=== PATIENT | male | born 1945 | race Caucasian/White ===

== ENCOUNTER → 2016-10-14 | Outpatient (CLI) | payer BC ==
[~2016-10-14] MED LIST: ASPEC325 PO; ASPI325T39 PO; AZEL30SP NAE; CYAN100020 PO; FEXO1TAB49 PO; FLNIN NAE; INSDGI SC; INSU100I17 SC; INSU100I2 SC; INSU1INJ23 SC; KETO1AER EXT; KETO2SHA TOP; LIRA18IN SC; LOSA100T65 PO; METF1000 PO; METO1TAB69 PO; METO50TA7 PO; MULT-506 PO; MULTTAB58 PO; NTRGSL/4 UT; PANT40TA PO; SIMV40TA2 PO; ZNTT/150 PO
[2016-10-14 09:40] LABS: BASO % 0.5 %; BASO ABS # 0.03 K/uL (0-0.2); COMPLETE YES; EOS % 7.6 %; HEMATOCRIT 39.8 % (42-52); IG% 0.2 %; LYMPH % 27.7 %; LYMPH ABS # 1.83 K/uL (1.2-3.4); MEAN CELL VOLUME 92.6 fL (80-100); MEAN CORPUSCULAR HEMOGLOBIN 31.9 pg (25-34); MEAN CORPUSCULAR HGB CONC 34.4 g/dl (32-36); MEAN PLATELET VOLUME 11.6 fL (7.4-10.4); MONO % 15.8 %; NEUT % 48.2 %; PLATELET COUNT 199 K/uL (130-400)
[2016-10-14 10:01] LABS: AST/SGOT 26 U/L (15-37); BLOOD UREA NITROGEN 16 mg/dl (7-18); BUN/CREATININE RATIO 12.5 (10-20); CALCIUM 9.2 mg/dl (8.5-10.1); CARBON DIOXIDE 24 mmol/L (21-32); CHLORIDE 108 mmol/L (98-107); GLUCOSE 97 mg/dl (70-99); POTASSIUM 4.1 mmol/L (3.5-5.1); SODIUM 142 mmol/L (136-145)
[2016-10-14 10:05] LABS: ALT/SGPT 37 U/L (12-78); CHOLESTEROL 99 mg/dl (0-200); CHOLESTEROL/HDL RATIO 2.7; HDL CHOLESTEROL 37 mg/dl; LDL CHOLESTEROL CALCULATED 46 mg/dl; TRIGLYCERIDES 78 mg/dl (0-150); VERY LOW DENSITY LIPOPROT CALC 16 mg/dl
[2016-10-14 10:16] LABS: ESTIMATED AVERAGE GLUCOSE 128 mg/dl; HA1C FLAG Normal (Normal)
[2016-10-14 10:22] LABS: RATIO 6.2 mcg/mg (0-30.0)
== END | disposition home or self-care (01) ==
LOC: C.LAB1850 07:41
PROVIDERS: ATTEND Physician Assistant
DX: Z11.59 Encounter for screening for other viral diseases (principal); E11.9 Type 2 diabetes mellitus without complications; I10 Essential (primary) hypertension; E78.00 Pure hypercholesterolemia, unspecified; I25.10 Atherosclerotic heart disease of native coronary artery without angina pectoris

== ENCOUNTER → 2016-10-20 | Day surgery (SDC) | payer BC ==
[2016-10-07 08:39] VITALS: Ht 182.9 cm; Wt 131.8 kg
[~2016-10-20] VITALS: Ht 182.9 cm; Wt 131.8 kg
[~2016-10-20] MED LIST changes: +BACL10TA PO; +HYDR-4079 PO; +KETO10TA PO; +LIDOCAINE HCL 2% 2 ML VIAL (20MG/ML) ONE; +METO100T44 PO; -METO1TAB69 PO; +MIDAZOLAM HCL 1 MG/ML 2ML VIAL ONE; +PROPOFOL IV EMULSION 10 MG/ML 20 ML VIAL IV ONE; +SODIUM CHLORIDE 0.9% 500ML 500 ML IV ONE
--- NOTE | 2016-10-20 13:00 | Endo History and Physical ---
History & Physical Date of Service: Oct 20, 2016. Chief Complaint: Screening Referring Physician: Dr. Victor History of Present Illness 71 yo CM who presents for screening colonoscopy. Past Medical History Diabetes, Reflux, High Cholesterol, Heart Disease, Hypertension Past Surgical History Hx Cardiac Surgery: Yes (CABG-4 VESSELS) Hx Internal Defibrillator: No Hx Abdominal Surgery: No Hx Post-Op Nausea and Vomiting: No Hx Cancer Surgery: No Hx Thoracic Surgery: No Hx Orthopedic: Yes (LEFT KNEE ARTHROSCOPY) Hx Urinary Tract Surgery: No Family History None Social History Smoking Status: Never Smoker Hx Substance Use: No Hx Alcohol Use: No Allergies Coded Allergies: Latex (Verified Allergy, Unknown, RASH, 10/20/16) Sulfa Drugs (Verified Allergy, Unknown, SEVERE ALLERGY "COULD ", ) Amoxicillin (Verified Adverse Reaction, Mild, VOMITING, 10/20/16) Clarithromycin (Verified Adverse Reaction, Mild, GI UPSET, 10/20/16) Clavulanic Acid (Verified Adverse Reaction, Mild, VOMITING, 10/20/16) Current Medications Reported Home Medications Medications Dose Route/Sig Max Daily Dose Days Date Category Dose Instructions Vitamin B12 (Cyanocobalamin) 1,000 Mcg Tab 1 Tab PO QAM 10/07/16 Reported Victoza (Liraglutide) 18 Mg/3 Ml Inj 1.8 Mg SC QAM 10/07/16 Reported Zocor (Simvastatin) 40 Mg Tab 40 Mg PO QPM 10/07/16 Reported Protonix (Pantoprazole Sodium) 40 Mg Tab 40 Mg PO QAM 10/07/16 Reported Nitrostat (Nitroglycerin) 0.4 Mg Tab 0.4 Mg UT PRN PRN 10/07/16 Reported Multivitamin (Multivitamins) Tab 1 Tab PO QPM 10/07/16 Reported Toprol-Xl (Metoprolol Succinate) 50 Mg Tabcr 50 Mg PO QAM 10/07/16 Reported Cozaar (Losartan Potassium) 100 Mg Tab 100 Mg PO QAM 10/07/16 Reported Glucophage (Metformin Hcl) 1,000 Mg Tab 1,000 Mg PO BID 10/07/16 Reported Lantus (Insulin Glargine) 100 Unit/Ml Inj 30 Units SC QPM 10/07/16 Reported Ketodan (Ketoconazole (Topical)) 2 % Aer 1 Appln EXT BID PRN 10/07/16 Reported Ketoconazole (Ketoconazole (Topical)) 2 % Sha 1 Appln TOP 2XWK 30 10/07/16 Reported Humulin N Kwikpen (Insulin Isophane (Human)) 100 Unit/Ml Inj 22 Units SC HS 10/07/16 Reported Multivitamin (Multiple Vitamin) 1 Tab Tab 1 Tab PO QAM 08/21/14 Reported Humalog Pen (Insulin Lispro (Human)) 100 Unit/ Inj 0 SC UD 12/22/11 Reported per sliding scale Aspirin * (Aspirin) 325 Mg Tab 325 Mg PO QAM 04/19/10 Reported Vital Signs Weight (Kilograms): 131.82 Height (Feet): 6 Height (Inches): 0 Physical Exam General Appearance: WD/WN, no apparent distress Respiratory/Chest: Auscultation: breath sounds normal Cardiovascular: Heart Auscultation: RRR Abdomen: Bowel Sounds: normal Inspection & Palpation: soft, non-distended, no tenderness, guarding & rebound Assessment and Plan Assessment: 71 yo CM who presents for screening colonoscopy. Plan: Proceed with colonoscopy.
--- NOTE | 2016-10-20 14:25 | GI REPORT ---
Procedure Date: 10/20/2016 2:04 PM Procedure: Colonoscopy Indications: Screening for colorectal malignant neoplasm Medicines: Monitored Anesthesia Care Complications: No immediate complications. Estimated Blood Loss: Estimated blood loss: none. Procedure: Pre-Anesthesia Assessment: - Prior to the procedure, a History and Physical was performed, and patient medications and allergies were reviewed. The patient's tolerance of previous anesthesia was also reviewed. The risks and benefits of the procedure and the sedation options and risks were discussed with the patient. All questions were answered, and informed consent was obtained. Prior Anticoagulants: The patient has taken aspirin, last dose was day of procedure. ASA Grade Assessment: III - A patient with severe systemic disease. After reviewing the risks and benefits, the patient was deemed in satisfactory condition to undergo the procedure. After I obtained informed consent, the scope was passed under direct vision. Throughout the procedure, the patient's blood pressure, pulse, and oxygen saturations were monitored continuously. The Scope was introduced through the anus and advanced to the terminal ileum. The colonoscopy was performed without difficulty. The patient tolerated the procedure well. The quality of the bowel preparation was good. The terminal ileum, ileocecal valve, appendiceal orifice, and rectum were photographed. Findings: Multiple small-mouthed diverticula were found in the sigmoid colon. Non-bleeding internal hemorrhoids were found during retroflexion. The hemorrhoids were small. Impression: - Diverticulosis in the sigmoid colon. - Non-bleeding internal hemorrhoids. - No specimens collected. Recommendation: - Resume previous diet. - Continue present medications. - Repeat colonoscopy in 10 years for surveillance. - Return to primary care physician as previously scheduled. Gilmar Umaña, DO 10/20/2016 2:25:01 PM This report has been signed electronically. Note Initiated On: 10/20/2016 2:04 PM I attest to the content of the Intraoperative Record and orders documented therein, exceptions below
--- NOTE | 2016-10-20 14:31 | Discharge Instructions ---
Endoscopy Patient Instructions Date / Procedure(s) Performed Oct 20, 2016. Colonoscopy Allergy Information Coded Allergies: Latex (Verified Allergy, Unknown, RASH, 10/20/16) Sulfa Drugs (Verified Allergy, Unknown, SEVERE ALLERGY "COULD ", ) Amoxicillin (Verified Adverse Reaction, Mild, VOMITING, 10/20/16) Clarithromycin (Verified Adverse Reaction, Mild, GI UPSET, 10/20/16) Clavulanic Acid (Verified Adverse Reaction, Mild, VOMITING, 10/20/16) Discharge Date / Findings Oct 20, 2016. Diverticulosis Internal hemorrhoids Medication Instructions Stopped Medication(s): metformin stopped 10/18/16 OK to resume all medications today as prescribed. Reported Home Medications Medications Dose Route/Sig Max Daily Dose Days Date Category Dose Instructions Vitamin B12 (Cyanocobalamin) 1,000 Mcg Tab 1 Tab PO QAM 10/07/16 Reported Victoza (Liraglutide) 18 Mg/3 Ml Inj 1.8 Mg SC QAM 10/07/16 Reported Zocor (Simvastatin) 40 Mg Tab 40 Mg PO QPM 10/07/16 Reported Protonix (Pantoprazole Sodium) 40 Mg Tab 40 Mg PO QAM 10/07/16 Reported Nitrostat (Nitroglycerin) 0.4 Mg Tab 0.4 Mg UT PRN PRN 10/07/16 Reported Multivitamin (Multivitamins) Tab 1 Tab PO QPM 10/07/16 Reported Toprol-Xl (Metoprolol Succinate) 50 Mg Tabcr 50 Mg PO QAM 10/07/16 Reported Cozaar (Losartan Potassium) 100 Mg Tab 100 Mg PO QAM 10/07/16 Reported Glucophage (Metformin Hcl) 1,000 Mg Tab 1,000 Mg PO BID 10/07/16 Reported Lantus (Insulin Glargine) 100 Unit/Ml Inj 30 Units SC QPM 10/07/16 Reported Ketodan (Ketoconazole (Topical)) 2 % Aer 1 Appln EXT BID PRN 10/07/16 Reported Ketoconazole (Ketoconazole (Topical)) 2 % Sha 1 Appln TOP 2XWK 30 10/07/16 Reported Humulin N Kwikpen (Insulin Isophane (Human)) 100 Unit/Ml Inj 22 Units SC HS 10/07/16 Reported Humalog Pen (Insulin Lispro (Human)) 100 Unit/ Inj 0 SC UD 12/22/11 Reported per sliding scale Aspirin * (Aspirin) 325 Mg Tab 325 Mg PO QAM 04/19/10 Reported Provider Instructions Activity Restrictions - No exercising or heavy lifting for 24 hours. - Do not drink alcohol the day of the procedure. - Do not drive a car or operate machinery until the day after the procedure. - Do not make any important decisions or sign important papers in 24 hours after the procedure. Following Day: - Return to full activity which may include returning to work/school. Diet Start your diet with liquids and light foods (jello, soup, juice, toast). Then eat your usual diet if not nauseated. Treatment For Common After Affects For mild abdominal pain, bloating, or excessive gas: - Rest - Eat lightly - Lie on right side Follow-Up Information Follow-up with Kayleigh as scheduled Anesthesia Information What You Should Know You have had a procedure that required some medicine to reduce anxiety and discomfort. This treatment is called moderate sedation. After receiving the treatment, you may be sleepy, but you will be able to breathe on your own. The effects of the treatment may last for several hours. Follow these instructions along with Activity/Diet recommendations noted above: * Do NOT do anything where dizziness or clumsiness would be dangerous. * Rest quietly at home today, then you can be up and about tomorrow. * Have a responsible person stay with you the rest of today. * You may have had an I.V. today. If so, you may take the dressing off later today. Recommendations Call your doctor if: * Trouble breathing * Continuous vomiting for more than 24 hours * Temperature above 101 degrees * Severe abdominal pain or bloating * Pain not relieved by pain medicine ordered * There is increased drainage or redness from any incision * A large amount of rectal bleeding greater than 2-3 tablespoons. (If you had a polyp/s removed or have hemorrhoids, a small amount of blood - from the rectum is to be expected.) * You have any unanswered questions or concerns. IN THE EVENT OF A SERIOUS EMERGENCY, GO TO THE NEAREST EMERGENCY ROOM Your discharge instructions were prepared by provider Gilmar Umaña. Patient Instructions Signature Page Shreyas James Patient (or Guardian) Signature/Date: I have read and understand the instructions given to me by my caregivers. Caregiver/RN/Doctor Signature/Date: The above-named patient and/or guardian has received patient instructions on this date. + Original Patient Signature Page (only) stays with chart. Please make copy for patient.
[2016-10-20 14:48] VITALS: BP 159/77; PULSE 73; O2SAT 96
--- NOTE | 2016-10-20 15:36 | Anesthesiology Progress Note ---
Anesthesia Post Op Note Date & Time Oct 20, 2016 at 15:36 Vital Signs Pain Intensity: 0 Vital Signs Past 12 Hours Date Time Temp Pulse Resp B/P Pulse Ox O2 Delivery O2 Flow Rate FiO2 10/20/16 14:48 73 16 159/77 96 Room Air 10/20/16 14:33 72 16 159/67 94 Room Air 10/20/16 14:18 69 12 152/81 95 Room Air 10/20/16 13:12 36.8 74 16 145/71 95 Room Air Notes Mental Status: alert / awake / arousable, participated in evaluation Pt Amnestic to Procedure: Yes Nausea / Vomiting: adequately controlled Pain: adequately controlled Airway Patency, RR, SpO2: stable & adequate BP & HR: stable & adequate Hydration State: stable & adequate Anesthetic Complications: no major complications apparent
== END | disposition home or self-care (01) ==
LOC: C.GI 12:29
PROVIDERS: ATTEND Internal Medicine
DX: Z12.11 Encounter for screening for malignant neoplasm of colon (principal); K57.30 Diverticulosis of large intestine without perforation or abscess without bleeding; K64.8 Other hemorrhoids; K21.9 Gastro-esophageal reflux disease without esophagitis; E11.9 Type 2 diabetes mellitus without complications; E78.5 Hyperlipidemia, unspecified; I10 Essential (primary) hypertension; Z95.1 Presence of aortocoronary bypass graft; Z88.1 Allergy status to other antibiotic agents; Z88.2 Allergy status to sulfonamides; Z88.8 Allergy status to other drugs, medicaments and biological substances; Z79.4 Long term (current) use of insulin; Z79.82 Long term (current) use of aspirin; Z91.040 Latex allergy status

== ENCOUNTER → 2017-03-06 | Outpatient (CLI) | payer BC ==
[~2017-03-06] MED LIST changes: -BACL10TA PO; -HYDR-4079 PO; -KETO10TA PO; -LIDOCAINE HCL 2% 2 ML VIAL (20MG/ML) ONE; -METO100T44 PO; +METO1TAB69 PO; -MIDAZOLAM HCL 1 MG/ML 2ML VIAL ONE; -MULTTAB58 PO; -PROPOFOL IV EMULSION 10 MG/ML 20 ML VIAL IV ONE; -SODIUM CHLORIDE 0.9% 500ML 500 ML IV ONE
[2017-03-06 09:55] LABS: ESTIMATED AVERAGE GLUCOSE 123 mg/dl; HA1C FLAG Normal (Normal)
== END | disposition home or self-care (01) ==
LOC: C.LAB1850 08:55
PROVIDERS: ATTEND Physician Assistant
DX: E11.9 Type 2 diabetes mellitus without complications (principal)

== ENCOUNTER 2017-03-22 13:24 | Emergency (ER) | payer BC ==
[~2017-03-22] VITALS: Ht 180.3 cm; Wt 134.4 kg
[~2017-03-22 13:24] MED LIST changes: -ASPI325T39 PO; -AZEL30SP NAE; -FEXO1TAB49 PO; -FLNIN NAE; -INSU100I2 SC; -METO1TAB69 PO; -ZNTT/150 PO
[2017-03-22 13:30] VITALS: TEMP 36.7; Ht 180.3 cm; Wt 134.4 kg
[2017-03-22] MEDS ORDERED: NITROGLYCERIN OINT 2% 1GM PACKET EXT ONE (13:45)
[2017-03-22 13:57] LABS: HEMATOCRIT 39.3 % (42-52); MEAN CELL VOLUME 95.9 fL (80-100); MEAN CORPUSCULAR HEMOGLOBIN 31.2 pg (25-34); MEAN CORPUSCULAR HGB CONC 32.6 g/dl (32-36); MEAN PLATELET VOLUME 11.4 fL (7.4-10.4); PLATELET COUNT 181 K/uL (130-400); WHITE BLOOD COUNT 6.39 K/uL (4.8-10.8)
--- NOTE | 2017-03-22 14:00 | DIAGNOSTIC IMAGING REPORT ---
CHEST ONE VIEW PORTABLE HISTORY: 71 years-old Male acute chest pain. COMPARISON: Chest radiographs 12/22/2011 TECHNIQUE: Portable upright AP view of the chest FINDINGS: Cardiac silhouette is upper limits of normal. Prior median sternotomy. There is no pneumothorax, pleural effusion, focal airspace consolidation or overt pulmonary edema. The bones are grossly intact. IMPRESSION: No acute cardiopulmonary process. The above report was generated using voice recognition software. It may contain grammatical, syntax or spelling errors. Electronically signed by: Jesu Kramer M.D. 03/22/2017 1:59 PM Dictated Date/Time: 03/22/2017 1:58 PM
[2017-03-22] MEDS ORDERED: ASPI325T39 PO (14:07)
[2017-03-22 14:09] LABS: POTASSIUM 4.2 mmol/L (3.5-5.1)
[2017-03-22 14:12] LABS: PROTHROMBIN TIME (PATIENT) 10.8 SECONDS (9.0-12.0)
[2017-03-22] MEDS ORDERED: INSU100I2 SC (14:12)
[2017-03-22 14:14] LABS: BUN/CREATININE RATIO 11.9 (10-20); CALCIUM 9.2 mg/dl (8.5-10.1); CREATININE 1.4 mg/dl (0.60-1.40)
[2017-03-22 14:18] LABS: ALB/GLOB RATIO 0.9 (0.9-2); CKMB/CK RATIO 2.2 (0-3.0)
--- NOTE | 2017-03-22 14:24 | EMERGENCY ROOM VISIT NOTE ---
History First contact with patient: 13:34 Chief Complaint: CHEST PAIN Stated Complaint: V, CHEST PAINS Nursing Triage Summary: pt reports started with cp this AM and took nitro X1 it made my tongue burn and now I just feel crappy , pt currently denies cp pt reports had same type of sx 3 years ago and was dx with indigestion. states today took alkaseltzer with relief History of Present Illness The patient is a 71 year old male with history of CABG and GERD who presents to the Emergency Room with complaints of chest/epigastric pain and nausea. His symptoms started with left sided chest pain that started this morning around 7am , lasted for a few minutes, severity 5/10, radiation to his left arm, non positional, occurred at rest while sitting on the edge of his bed. After this it turned it became epigastric pain and he felt nauseous. He went to the bathroom and dry heaved for several minutes. After which he went back to have a nap. Around 10:30am he woke up again and just didn't feel like his normal self, possibly a little nauseous. He took a nitroglycerin and it made him feel worse with tightening feeling of his chest and arm for a few seconds. He then took some vandana seltzer and this helped calm his pain down. He has been asymptomatic since then and no chest pain or shortness of breath in the ER. His brought him in after convincing him he should get checked out. He notes occasionally he does get intermittent chest pains which feel like muscle spasms, non exertional, occur usually at rest, rubbing his intercostal muscles helps. Review of Systems Constitutional: No fever, No chills Eyes: No worsening of vision ENT: No hearing loss Respiratory: + problem reported (night time snoring and excessive daytime sleepiness), No cough, No sputum, No wheezing, No shortness of breath Cardiovascular: + chest pain, No orthopnea, No PND, No edema, No claudication, No palpitations Abdomen: No nausea, No vomiting, No diarrhea, No constipation, No GI bleeding Musculoskeletal: No joint pain, No muscle pain Genitourinary - Male: No hematuria, No dysuria, No urinary frequency, No urinary urgency Neurologic: No paralysis, No weakness, No numbness/tingling, No vertigo, No balance problems Endocrine: No fatigue, No excessive thirst, No excessive urination Hematologic / Lymphatic: No abnormal bleeding/bruising Integumentary: No rash, No itch Past Medical/Surgical History Medical Problems: (1) Benign essential hypertension (2) CABG (3) Coronary artery disease (4) Diabetes mellitus type 2 (5) Gastroesophageal reflux disease (6) Hyperlipidemia Social History Smoking Status: Never Smoker Alcohol Use: none Marital Status: Current/Historical Medications Scheduled Aspirin (Aspirin Ec), 325 MG PO DAILY Azelastine Hcl-Fluticasone Pro (Dymista), 2 SPRY MARY BID Cyanocobalamin (Vitamin B12), 1 TAB PO QAM Fexofenadine Hcl (Jen Allergy), 180 MG PO DAILY Fluticasone Propionate (Fluticasone Propionate), 2 SPRAYS MARY DAILY Insulin Glargine (Lantus), 30 UNITS SC QPM Insulin Isophane (Human) (Humulin N Kwikpen), 22 UNITS SC HS Insulin Lispro (Human) (Humalog Kwikpen), 1 DOSE SC UD Ketoconazole (Topical) (Ketoconazole), 1 APPLN TOP 2XWK Liraglutide (Victoza), 1.8 MG SC QAM Losartan Potassium (Cozaar), 100 MG PO QAM Metformin Hcl (Glucophage), 1,000 MG PO BID Metoprolol Succ (Toprol Xl) (Toprol-Xl ), 100 MG PO DAILY Multivitamin (Multivitamin), 1 TAB PO QPM Pantoprazole (Protonix), 40 MG PO QAM Ranitidine (Zantac), 1 TAB PO BID Simvastatin (Zocor), 40 MG PO QPM Scheduled PRN Ketoconazole (Topical) (Ketodan), 1 APPLN EXT BID PRN for PRN Nitroglycerin (Nitrostat), 0.4 MG UT PRN PRN for Chest Pain Physical Exam Vital Signs Date Time Temp Pulse Resp B/P (MAP) Pulse Ox O2 Delivery O2 Flow Rate FiO2 03/22/17 17:00 89 18 148/82 95 03/22/17 16:00 70 18 141/80 94 Room Air 03/22/17 15:03 73 20 169/83 98 Room Air 03/22/17 14:21 77 18 171/86 96 Room Air 03/22/17 13:41 82 03/22/17 13:30 36.7 82 18 189/110 94 Room Air Pain Rating (0-10): 0 Physical Exam General Appearance: no apparent distress, + obese Eyes: normal inspection, PERRL, EOMI Neck: supple, no JVD (difficult to assess due to patient's weight), trachea midline Respiratory/Chest: chest non-tender, lungs clear, normal breath sounds, no respiratory distress, no accessory muscle use Cardiovascular: regular rate, rhythm, no murmur, normal peripheral pulses Abdomen / GI: normal bowel sounds, non tender, soft Back: no CVA tenderness Extremities: no calf tenderness, normal capillary refill, + pedal edema ( bilateral right 2+ to knees, left 1+, right calf circumference > 2cm then his left.) 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 COMPARISON: Chest radiographs 12/22/2011 TECHNIQUE: Portable upright AP view of the chest FINDINGS: Cardiac silhouette is upper limits of normal. Prior median sternotomy. There is no pneumothorax, pleural effusion, focal airspace consolidation or overt pulmonary edema. The bones are grossly intact. IMPRESSION: No acute cardiopulmonary process. The above report was generated using voice recognition software. It may contain grammatical, syntax or spelling errors. Electronically signed by: Jesu Kramer M.D. 03/22/2017 1:59 PM Laboratory Results 03/22/17 13:41 03/22/17 13:41 Test 03/22/17 13:41 03/22/17 15:14 Red Blood Count 4.10 M/uL (4.7-6.1) Mean Corpuscular Volume 95.9 fL (80-100) Mean Corpuscular Hemoglobin 31.2 pg (25-34) Mean Corpuscular Hemoglobin Concent 32.6 g/dl (32-36) RDW Standard Deviation 49.4 fL (36.4-46.3) RDW Coefficient of Variation 14.1 % (11.5-14.5) Mean Platelet Volume 11.4 fL (7.4-10.4) Prothrombin Time 10.8 SECONDS (9.0-12.0) Prothromb Time International Ratio 1.0 (0.9-1.1) Activated Partial Thromboplast Time 27.1 SECONDS (21.0-31.0) Partial Thromboplastin Ratio 1.0 Anion Gap 6.0 mmol/L (3-11) Est Creatinine Clear Calc Drug Dose 69.7 ml/min Estimated GFR () 59.0 Estimated GFR (Non- 50.9 BUN/Creatinine Ratio 11.9 (10-20) Calcium Level 9.2 mg/dl (8.5-10.1) Total Bilirubin 0.8 mg/dl (0.2-1) Direct Bilirubin 0.2 mg/dl (0-0.2) Aspartate Amino Transf (AST/SGOT) 31 U/L (15-37) Alanine Aminotransferase (ALT/SGPT) 39 U/L (12-78) Alkaline Phosphatase 56 U/L (45-117) Total Creatine Kinase 203 U/L (39-308) Creatine Kinase MB 4.4 ng/ml (0.5-3.6) Creatine Kinase MB Ratio 2.2 (0-3.0) Total Protein 7.4 gm/dl (6.4-8.2) Albumin 3.5 gm/dl (3.4-5.0) Globulin 3.9 gm/dl (2.5-4.0) Albumin/Globulin Ratio 0.9 (0.9-2) Lipase 177 U/L (73-393) Bedside Troponin I < 0.030 ng/ml (0-0.045) Medications Administered Medications (Trade) Dose Ordered Sig/Abdiel Route Start Time Stop Time Status Last Admin Dose Admin Lidocaine HCl (Viscous Lidocaine 2% Soln) 20 ml STK-MED ONCE .ROUTE 03/22/17 15:55 03/22/17 15:56 DC 03/22/17 15:59 10 ML Al Hydroxide/Mg Hydroxide (Maalox Susp) 30 ml STK-MED ONCE .ROUTE 03/22/17 15:55 03/22/17 15:56 DC 03/22/17 15:59 30 ML ECG Indication: chest pain Rate (beats per minute): 81 Rhythm: normal sinus Findings: no acute ischemic change Change: no significant change (22 December 2016) ED Course 13:35 History and physical performed by myself 14:[address] Sesay who separately performed history and examination. Advised to change US doppler right leg to bilateral. 15:40 Patient was re-evaluated and denies any ongoing pain. Offered GI cocktail which he accepted as it had worked well previously. Medical Decision Prior records/ancillary studies reviewed. Triage Nursing notes reviewed. Additional history obtained from patient and his . The patient's history was concerning for chest pain wit history of CABG. Differential diagnosis: Etiologies such as cardiac ischemia, aortic dissection, pulmonary embolism, pneumonia, pneumothorax, musculoskeletal, infections, pericarditis, myocarditis , esophageal rupture, gastrointestinal, as well as others were entertained. Physical examination: As above. ER treatment provided: GI cocktail (lidocaine and maalox) On reassessment the patient felt better. Diagnostic interpretation by me: The electrocardiogram was negative for pathologic change. The labs revealed mild anaemia Hgb 12.8 and normal troponin x2. Imaging studies: Chest x-ray as above By the evaluation outlined above emergent etiologies such as aortic dissection, pulmonary embolism, pneumonia, pneumothorax, infections, pericarditis, myocarditis, gastrointestinal, as well as others were deemed relatively unlikely. The patient informed about the findings as listed above. All questions were answered and he was pleased with the treatment. Return instructions were outlined and the patient was discharged in stable condition. He was advised to stay overnight to be evaluated by the hospitalist group for repeat troponin in the morning to rule out cardiac ischemia however he declined and wished to be discharged home. He will be discharged home on ranitidine in combination with his pantoprazole for possible gastritis. He was advised to follow up with his primary care provider regarding possible further testing for h. pylori or EGD. Incidentally he also notes excessive daytime sleepiness and night time snoring. He was advised to discuss with his PCP regarding possible testing for obstructive sleep apnea for this. He was also advised to follow up with his PCP for his elevated blood pressure while in the ER. Outpatient prescription management: Ranitidine 150 mg PO BID Referral: The patient was referred back to his primary care physician for follow-up in 1 to 2 days for a recheck of the current condition. Medication Reconcilliation Current Medication List: was personally reviewed by me Blood Pressure Screening Patient's blood pressure: Elevated blood pressure Blood pressure disposition: Referred to PCP Impression Primary Impression: Atypical chest pain Departure Information Dispostion Home / Self-Care Condition GOOD Prescriptions Ranitidine (Zantac) 150 Mg Tab 1 TAB PO BID for 14 Days, #28 TAB 3 Refills Prov: Александр Ng MD 03/22/17 Referrals Александр Victor M.D. (PCP) Patient Instructions My [facility] Additional Instructions You were evaluated in the ER for atypical chest pain, epigastric pain and nausea. EKG showed no ischemic changes, POC troponin 8 hours after the onset of your pain was negative. Recommendation was to stay in overnight for repeat troponin however you wished to be discharged. Recommend taking ranitidine for possible gastritis for the next 2 weeks. If pain returns while taking ranitidine please return to the ER immediately. Your excessive daytime sleepiness and night time snoring is concerning for obstructive sleep apnea and we recommend talking to your primary care physician about possibly having a sleep study. You should also follow up with your PCP for elevated blood pressure while in the ER. Read all the package inserts or medication information paperwork provided. If you have any questions or concerns call your primary provider, pharmacist or the ER for assistance. Rest and drink plenty of fluids as tolerated. Continue current medications. Avoid strenuous activities and anything that worsens your pain. Resume normal activities. Return to the ER immediately for worsening or persistent chest pain, abdominal pain, vomiting, fevers, chest pains, difficulty breathing, worsening of your condition, or as needed. Follow up with your primary physician in 1-2 days for a recheck of your current condition. Resident Tracking Resident Involvement: Resident Care Provided Care Provided: Adult ED
[2017-03-22] MEDS ORDERED: METO1TAB69 PO (14:25)
[2017-03-22] MEDS ORDERED: FEXO1TAB49 PO (14:30)
[2017-03-22] MEDS ORDERED: AZEL30SP NAE (14:30)
[2017-03-22] MEDS ORDERED: FLNIN NAE (14:30)
--- NOTE | 2017-03-22 14:58 | DIAGNOSTIC IMAGING REPORT ---
ULTRASOUND VENOUS DOPPLER LWR EXT BILA CLINICAL HISTORY: Bilateral leg swelling COMPARISON STUDY: No previous studies for comparison. FINDINGS: Real-time and color flow Doppler imaging were performed. Flow was seen within the femoral, popliteal and calf veins with no intraluminal thrombus demonstrated. The saphenous vein is patent. IMPRESSION: No evidence of lower extremity DVT. Electronically signed by: Perry Durán M.D. 03/22/2017 2:57 PM Dictated Date/Time: 03/22/2017 2:56 PM
[2017-03-22] MEDS ORDERED: GI COCKTAIL PO STA (15:50)
[2017-03-22] MEDS ORDERED: LIDOCAINE HCL 2% VISC SOLN 20 ML UDC ONE (15:55)
[2017-03-22] MEDS ORDERED: ALUMINUM/MAGNESIUM SUSP 30 ML UDC ONE (15:55)
[2017-03-22] MEDS ORDERED: ZNTT/150 PO (16:36)
[2017-03-22 17:00] VITALS: BP 148/82; PULSE 89; O2SAT 95
--- NOTE | 2017-03-22 17:54 | EMERGENCY ROOM VISIT NOTE ---
History Report prepared by Jacoby: Angelique Paige Under the Supervision of: Dr. Jared Sesay M.D. First contact with patient: 13:34 Chief Complaint: CHEST PAIN Stated Complaint: V, CHEST PAINS Nursing Triage Summary: pt reports started with cp this AM and took nitro X1 it made my tongue burn and now I just feel crappy , pt currently denies cp pt reports had same type of sx 3 years ago and was dx with indigestion. states today took alkaseltzer with relief History of Present Illness The patient is a 71 year old male who presents to the Emergency Room with complaints of an episode of chest pain occurring at 7am this morning that has completely resolved at this time. The patient states that he developed chest pain this morning while at rest. It lasted for a couple of minutes and then resolved on its own. He did not experience any diaphoresis or dizziness. He did not have any appetite and states that he felt nauseated throughout the entire day. This worsened this afternoon and he developed epigastric abdominal pain. He denies any vomiting but states that he was dry-heaving. He took a nap and when he woke up he was not feeling well. He did not have any pain but he took a nitro and that made him feel worse. It made him woozy and gave him a headache. He then took some vandana seltzer and that made him feel better. He is no longer experiencing any symptoms at this time. The patient notes that he has had some left shoulder pain for a few days that felt musculoskeletal and he states that is similar to how his chest pain felt today. The patient denies any current abdominal pain or chest pain. He denies shortness of breath. He has a history of a CABG. Source of History: patient Onset: this morning Position: chest Timing: resolved Modifying Factors (Worsening): other (nitro) Modifying Factors (Relieving): other (vandana seltzer) Associated Symptoms: + nausea, + abdominal pain, No diaphoresis, No SOB, No vomiting Review of Systems See HPI for pertinent positives & negatives. A total of 10 systems reviewed and were otherwise negative. Past Medical & Surgical Medical Problems: (1) Benign essential hypertension (2) CABG (3) Coronary artery disease (4) Diabetes mellitus type 2 (5) Gastroesophageal reflux disease (6) Hyperlipidemia Family History Heart disease Hypertension Social History Smoking Status: Never Smoker Smokeless Tobacco Use: No Alcohol Use: none Drug Use: none Marital Status: Housing Status: lives with significant other Occupation Status: employed Current/Historical Medications Scheduled Aspirin (Aspirin Ec), 325 MG PO DAILY Azelastine Hcl-Fluticasone Pro (Dymista), 2 SPRY MARY BID Cyanocobalamin (Vitamin B12), 1 TAB PO QAM Fexofenadine Hcl (Jen Allergy), 180 MG PO DAILY Fluticasone Propionate (Fluticasone Propionate), 2 SPRAYS MARY DAILY Insulin Glargine (Lantus), 30 UNITS SC QPM Insulin Isophane (Human) (Humulin N Kwikpen), 22 UNITS SC HS Insulin Lispro (Human) (Humalog Kwikpen), 1 DOSE SC UD Ketoconazole (Topical) (Ketoconazole), 1 APPLN TOP 2XWK Liraglutide (Victoza), 1.8 MG SC QAM Losartan Potassium (Cozaar), 100 MG PO QAM Metformin Hcl (Glucophage), 1,000 MG PO BID Metoprolol Succ (Toprol Xl) (Toprol-Xl ), 100 MG PO DAILY Multivitamin (Multivitamin), 1 TAB PO QPM Pantoprazole (Protonix), 40 MG PO QAM Ranitidine (Zantac), 1 TAB PO BID Simvastatin (Zocor), 40 MG PO QPM Scheduled PRN Ketoconazole (Topical) (Ketodan), 1 APPLN EXT BID PRN for PRN Nitroglycerin (Nitrostat), 0.4 MG UT PRN PRN for Chest Pain Allergies Coded Allergies: Latex (Verified Allergy, Unknown, RASH, 03/22/17) Sulfa Drugs (Verified Allergy, Unknown, SEVERE ALLERGY "COULD ", ) Amoxicillin (Verified Adverse Reaction, Mild, VOMITING, 03/22/17) Clarithromycin (Verified Adverse Reaction, Mild, GI UPSET, 03/22/17) Clavulanic Acid (Verified Adverse Reaction, Mild, VOMITING, 03/22/17) Physical Exam Vital Signs Date Time Temp Pulse Resp B/P (MAP) Pulse Ox O2 Delivery O2 Flow Rate FiO2 03/22/17 17:00 89 18 148/82 95 03/22/17 16:00 70 18 141/80 94 Room Air 03/22/17 15:03 73 20 169/83 98 Room Air 03/22/17 14:21 77 18 171/86 96 Room Air 03/22/17 13:41 82 03/22/17 13:30 36.7 82 18 189/110 94 Room Air Physical Exam Constitutional: Vital signs reviewed. Eyes: Pupils are equal round reactive to light. Conjunctiva are noninjected. ENT: Pharynx is clear without erythema or exudate. Mucous membranes are moist. Neck supple without meningeal signs. Respiratory: Clear to auscultation bilaterally. Breath sounds are equal bilaterally. Cardiovascular: Regular rate and rhythm. No rubs or gallops. GI: Soft, nondistended and nontender. Bowel sounds are present. Musculoskeletal: Bilateral lower extremity edema. No lower extremity tenderness. Integumentary: No cyanosis. Neurological: The patient is awake and alert. No focal deficits. Psychiatric: Normal affect. Medical Decision & Procedures ER Provider Diagnostic Interpretation: Radiology results as stated below per my review and the radiologist's interpretation: CHEST ONE VIEW PORTABLE HISTORY: 71 years-old Male acute chest pain. COMPARISON: Chest radiographs 12/22/2011 TECHNIQUE: Portable upright AP view of the chest FINDINGS: Cardiac silhouette is upper limits of normal. Prior median sternotomy. There is no pneumothorax, pleural effusion, focal airspace consolidation or overt pulmonary edema. The bones are grossly intact. IMPRESSION: No acute cardiopulmonary process. The above report was generated using voice recognition software. It may contain grammatical, syntax or spelling errors. Electronically signed by: Jesu Kramer M.D. 03/22/2017 1:59 PM Dictated Date/Time: 03/22/2017 1:58 PM ULTRASOUND VENOUS DOPPLER LWR EXT BILA CLINICAL HISTORY: Bilateral leg swelling COMPARISON STUDY: No previous studies for comparison. FINDINGS: Real-time and color flow Doppler imaging were performed. Flow was seen within the femoral, popliteal and calf veins with no intraluminal thrombus demonstrated. The saphenous vein is patent. IMPRESSION: No evidence of lower extremity DVT. Electronically signed by: Perry Durán M.D. 03/22/2017 2:57 PM Dictated Date/Time: 03/22/2017 2:56 PM Laboratory Results 03/22/17 13:41 03/22/17 13:41 Test 03/22/17 13:41 03/22/17 15:14 Red Blood Count 4.10 M/uL (4.7-6.1) Mean Corpuscular Volume 95.9 fL (80-100) Mean Corpuscular Hemoglobin 31.2 pg (25-34) Mean Corpuscular Hemoglobin Concent 32.6 g/dl (32-36) RDW Standard Deviation 49.4 fL (36.4-46.3) RDW Coefficient of Variation 14.1 % (11.5-14.5) Mean Platelet Volume 11.4 fL (7.4-10.4) Prothrombin Time 10.8 SECONDS (9.0-12.0) Prothromb Time International Ratio 1.0 (0.9-1.1) Activated Partial Thromboplast Time 27.1 SECONDS (21.0-31.0) Partial Thromboplastin Ratio 1.0 Anion Gap 6.0 mmol/L (3-11) Est Creatinine Clear Calc Drug Dose 69.7 ml/min Estimated GFR () 59.0 Estimated GFR (Non- 50.9 BUN/Creatinine Ratio 11.9 (10-20) Calcium Level 9.2 mg/dl (8.5-10.1) Total Bilirubin 0.8 mg/dl (0.2-1) Direct Bilirubin 0.2 mg/dl (0-0.2) Aspartate Amino Transf (AST/SGOT) 31 U/L (15-37) Alanine Aminotransferase (ALT/SGPT) 39 U/L (12-78) Alkaline Phosphatase 56 U/L (45-117) Total Creatine Kinase 203 U/L (39-308) Creatine Kinase MB 4.4 ng/ml (0.5-3.6) Creatine Kinase MB Ratio 2.2 (0-3.0) Total Protein 7.4 gm/dl (6.4-8.2) Albumin 3.5 gm/dl (3.4-5.0) Globulin 3.9 gm/dl (2.5-4.0) Albumin/Globulin Ratio 0.9 (0.9-2) Lipase 177 U/L (73-393) Bedside Troponin I < 0.030 ng/ml (0-0.045) Laboratory results as reviewed by me. Medications Administered Medications (Trade) Dose Ordered Sig/Abdiel Route Start Time Stop Time Status Last Admin Dose Admin Lidocaine HCl (Viscous Lidocaine 2% Soln) 20 ml Tradeos-MED ONCE .ROUTE 03/22/17 15:55 03/22/17 15:56 DC 03/22/17 15:59 10 ML Al Hydroxide/Mg Hydroxide (Maalox Susp) 30 ml STK-MED ONCE .ROUTE 03/22/17 15:55 03/22/17 15:56 DC 03/22/17 15:59 30 ML ECG Indication: chest pain Rate (beats per minute): 81 Rhythm: normal sinus Findings: RBBB (incomplete), no acute ischemic change Comparison ECG Date: 12/23/2011 Change: no significant change ED Course 1334: The patient was evaluated in room C8. A complete history and physical exam was performed. 1345: Nitroglycerin 1 inch EXT - pt refused. 1550: GI Cocktail 24 ml PO 1605: Dr. Ng discussed admission with the patient but he is requesting to leave at this time. 1611: I updated the patient on his results and treatment plan. He is refusing hospitalization at this time. I discussed with him and his the risks of this decision. They expressed understanding and verbalized agreement. They still want to go home. Medical Decision This is a 71-year-old male who presents with chest pain and upper abdominal pain. Differential diagnosis includes musculoskeletal pain, ME, gastritis, pancreatitis, gallbladder disease. I did perform a limited focused review of portions of the patient's old chart on the electronic medical record. The patient has had no recent pertinent visits to this hospital. I did evaluate the patient as noted above. IV access was established. The patient was placed on a continuous roller inspector and mender. I did order and personally review the patient's 12-lead EKG and chest x-ray as described above. I did order and review the patient's blood work as noted in the electronic medical record. Troponin is negative 2. I did reassess the patient. He is not have any any symptoms. His chest pain appears to be atypical but he does have a number risk factors for cardiac disease and so I did wish to hospitalize him for repeat cardiac enzymes and further evaluation. I did discussed the limitations of the testing done here in the emergency department with him. He refuses admission and understands the risks. I did discuss this with him and his . He was adamant about going home. He was advised to follow closely with his doctor for further evaluation and to return immediately for any worsening symptoms. He was discharged in good condition. Resident Physician Supervision Note: I did evaluate and examine this patient myself. I did guide management for the patient. I agree with the resident's (Dr. Ng) assessment as discussed. Please see the resident's dictation for further details. Medication Reconcilliation Current Medication List: was personally reviewed by me Blood Pressure Screening Patient's blood pressure: Elevated blood pressure Blood pressure disposition: Referred to PCP Impression Primary Impression: Left sided chest pain Additional Impression: Upper abdominal pain Scribe Attestation The scribe's documentation has been prepared under my direct and personally reviewed by me in its entirety. I confirm that the note above accurately reflects all work, treatment, procedures, and medical decision making performed by me. Departure Information Dispostion Home / Self-Care Prescriptions Ranitidine (Zantac) 150 Mg Tab 1 TAB PO BID for 14 Days, #28 TAB 3 Refills Prov: Александр Ng MD 03/22/17 Referrals Александр Victor M.D. (PCP) Forms Call Back Authorization, HOME CARE DOCUMENTATION FORM, IMPORTANT VISIT INFORMATION Patient Instructions [facility] Additional Instructions You were evaluated in the ER for atypical chest pain, epigastric pain and nausea. EKG showed no ischemic changes, POC troponin 8 hours after the onset of your pain was negative. Recommendation was to stay in overnight for repeat troponin however you wished to be discharged. Recommend taking ranitidine for possible gastritis for the next 2 weeks. If pain returns while taking ranitidine please return to the ER immediately. Your excessive daytime sleepiness and night time snoring is concerning for obstructive sleep apnea and we recommend talking to your primary care physician about possibly having a sleep study. You should also follow up with your PCP for elevated blood pressure while in the ER. Read all the package inserts or medication information paperwork provided. If you have any questions or concerns call your primary provider, pharmacist or the ER for assistance. Rest and drink plenty of fluids as tolerated. Continue current medications. Avoid strenuous activities and anything that worsens your pain. Resume normal activities. Return to the ER immediately for worsening or persistent chest pain, abdominal pain, vomiting, fevers, chest pains, difficulty breathing, worsening of your condition, or as needed. Follow up with your primary physician in 1-2 days for a recheck of your current condition. Problem Qualifiers
== END 2017-03-22 16:55 | disposition home or self-care (01) ==
LOC: C.EDB 13:26 → C.EDC 16:55
DX: R07.89 Other chest pain (principal); R10.13 Epigastric pain; I10 Essential (primary) hypertension; I25.10 Atherosclerotic heart disease of native coronary artery without angina pectoris; E11.9 Type 2 diabetes mellitus without complications; E78.5 Hyperlipidemia, unspecified; K21.9 Gastro-esophageal reflux disease without esophagitis; Z79.4 Long term (current) use of insulin; Z79.84 Long term (current) use of oral hypoglycemic drugs; Z79.82 Long term (current) use of aspirin; Z95.1 Presence of aortocoronary bypass graft; I45.10 Unspecified right bundle-branch block

== ENCOUNTER 2017-06-27 15:48 | Emergency (ER) | payer BC ==
[~2017-06-27] VITALS: Ht 180.3 cm; Wt 139.7 kg
[~2017-06-27 15:48] MED LIST changes: -ASPEC325 PO; +ASPI325T39 PO; +AZEL30SP NAE; +FEXO1TAB49 PO; +FLNIN NAE; -INSU100I17 SC; +INSU100I2 SC; +METO100T44 PO; -METO50TA7 PO; +ZNTT/150 PO
[2017-06-27 16:01] VITALS: TEMP 36.9; Ht 180.3 cm; Wt 139.7 kg
--- NOTE | 2017-06-27 16:49 | DIAGNOSTIC IMAGING REPORT ---
CHEST ONE VIEW PORTABLE CLINICAL HISTORY: Atypical chest pain. Swollen feet. COMPARISON STUDY: 03/22/2017 FINDINGS: There are postsurgical changes of a midline sternotomy. The cardiac and mediastinal contours remain stable. There is no failure. There is no focal pulmonary consolidation. There are no pleural effusions.[ IMPRESSION: No active disease in the chest. Electronically signed by: Perry Durán M.D. 06/27/2017 4:48 PM Dictated Date/Time: 06/27/2017 4:47 PM
[2017-06-27] MEDS ORDERED: HYDR-4079 PO (16:51)
[2017-06-27] MEDS ORDERED: KETO10TA PO (16:51)
[2017-06-27] MEDS ORDERED: BACL10TA PO (16:51)
[2017-06-27 16:56] LABS: BASO % 0.3 %; BASO ABS # 0.02 K/uL (0-0.2); COMPLETE YES; EOS % 7.5 %; HEMATOCRIT 35.7 % (42-52); IG% 0.3 %; LYMPH % 33.7 %; LYMPH ABS # 1.94 K/uL (1.2-3.4); MEAN CORPUSCULAR HEMOGLOBIN 32.9 pg (25-34); MEAN CORPUSCULAR HGB CONC 33.9 g/dl (32-36); MEAN PLATELET VOLUME 11.5 fL (7.4-10.4); MONO % 10.8 %; NEUT % 47.4 %; PLATELET COUNT 152 K/uL (130-400); RED BLOOD COUNT 3.68 M/uL (4.7-6.1); WHITE BLOOD COUNT 5.75 K/uL (4.8-10.8)
[2017-06-27 17:05] VITALS: O2SAT 95
[2017-06-27 17:15] LABS: ALT/SGPT 36 U/L (12-78); AST/SGOT 25 U/L (15-37); BLOOD UREA NITROGEN 18 mg/dl (7-18); BUN/CREATININE RATIO 13.1 (10-20); CALCIUM 8.8 mg/dl (8.5-10.1); CARBON DIOXIDE 25 mmol/L (21-32); CHLORIDE 107 mmol/L (98-107); CREATININE 1.41 mg/dl (0.60-1.40); GLUCOSE 117 mg/dl (70-99); POTASSIUM 4.2 mmol/L (3.5-5.1); SODIUM 138 mmol/L (136-145)
[2017-06-27 17:20] LABS: ALKALINE PHOSPHATASE 54 U/L (45-117)
[2017-06-27] MEDS ORDERED: OPTIRAY 320 IV PRN (17:45)
--- NOTE | 2017-06-27 18:06 | DIAGNOSTIC IMAGING REPORT ---
CT ANGIOGRAM OF THE CHEST CLINICAL HISTORY: Atypical chest pain. Feet swelling. Difficulty breathing COMPARISON STUDY: Chest x-ray dated 06/27/2017 TECHNIQUE: Following the IV administration of 100 mL of Optiray-320, CT angiogram of the thorax was performed from the thoracic inlet to the lung bases utilizing the pulmonary embolus protocol. Images are reviewed in the axial, sagittal, and coronal planes. IV contrast was administered without complication. MIP imaging was performed. A dose lowering technique was utilized adhering to the principles of ALARA. CT DOSE: 785.00 mGy.cm FINDINGS: Images the upper abdomen reveal cholelithiasis. There is a tiny hiatal hernia. There are mildly enlarged paratracheal lymph nodes measuring up to 13 mm in short axis. There is a mildly enlarged subcarinal lymph node. There are mildly enlarged right hilar lymph nodes. There was no evidence of thoracic aortic dilatation. There were no pulmonary artery filling defects to indicate acute pulmonary embolism. No pleural effusions are visualized. There is no focal pulmonary consolidation. There are minor dependent atelectatic changes. There are postsurgical changes of a midline sternotomy. IMPRESSION: 1. No evidence of acute pulmonary embolism 2. No evidence of focal pulmonary consolidation 3. Mild mediastinal and right hilar adenopathy 4. Cholelithiasis Electronically signed by: Perry Durán M.D. 06/27/2017 6:05 PM Dictated Date/Time: 06/27/2017 6:00 PM
--- NOTE | 2017-06-27 18:21 | EMERGENCY ROOM VISIT NOTE ---
History Report prepared by Jacoby: Coleman Alejandra Under the Supervision of: Dr. Shreyas Pagan M.D. First contact with patient: 16:12 Chief Complaint: RESPIRATORY PROBLEMS Stated Complaint: CANT BREATHE, SWELL FEET, VOMIT, CANT FOCUS, BACK Nursing Triage Summary: Pt presents ambulatory to triage stating, "My ankles are swollen. I am having a hard time breathing. I am not remembering things. I feel stupid and I'm not that way. I have bad sciatica pain. We went to the walk in clinic on Sat for the sciatica and they gave me three medications. There is something going on that is scaring me. I don't know if it's my heart or what. I threw up and I don't ever throw up." Sx began last . 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 He notes having difficulty breathing, though it does not worsen when he walks or lies down. He notes vomiting, persistent productive cough, leg pain and swelling, and inability to concentrate due to the pain. He currently rates his pain a 9/10 in severity. He has never had leg swelling before. He has a recent of history of pneumonia. He has a history of CABG and chronic back pain with sciatica. He has been newly diagnosed sleep apnea.. He regularly sees his keno attendant, Dr. Bellamy. He denies a history of COPD and blood clots. He notes having to take frequent naps throughout the day, which he finds is abnormal. Despite his SOB he still is able to play his trombone. He reports going to the [facility] outpatient clinic and was prescribed oxycodone and Vicodin, with no significant improvement. He has a history of diabetes and takes insulin. He notes his blood sugar was high at 148 and he gave himself 14 units 15 minutes ago. He denies chest pain, fevers, or chills. He normally uses a cane to ambulate. Source of History: patient Onset: 3 days AGRICULTURAL PRODUCE PACKER Symptom Intensity: 9/10 Quality: other (shortness of breath) Timing: intermittent Associated Symptoms: + cough (productive), + SOB, + vomiting, + back pain, No fevers, No chills, No chest pain Note: He notes leg pain and swelling. Review of Systems See HPI for pertinent positives and negatives. A total of ten systems were reviewed and were otherwise negative. Past Medical & Surgical Medical Problems: (1) Benign essential hypertension (2) CABG (3) Coronary artery disease (4) Diabetes mellitus type 2 (5) Gastroesophageal reflux disease (6) Hyperlipidemia Family History Heart disease Hypertension Social History Smoking Status: Never Smoker Alcohol Use: none Drug Use: none Marital Status: Housing Status: lives with significant other Occupation Status: employed Current/Historical Medications Scheduled Aspirin (Aspirin Ec), 325 MG PO DAILY Azelastine Hcl-Fluticasone Pro (Dymista), 2 SPRY MARY BID Cyanocobalamin (Vitamin B12), 1 TAB PO QAM Fexofenadine Hcl (Jen Allergy), 180 MG PO DAILY Fluticasone Propionate (Fluticasone Propionate), 2 SPRAYS MARY DAILY Insulin Glargine (Lantus), 30 UNITS SC QPM Insulin Isophane (Human) (Humulin N Kwikpen), 22 UNITS SC HS Insulin Lispro (Human) (Humalog Kwikpen), 1 DOSE SC UD Ketoconazole (Topical) (Ketoconazole), 1 APPLN TOP 2XWK Liraglutide (Victoza), 1.8 MG SC QAM Losartan Potassium (Cozaar), 100 MG PO QAM Metformin Hcl (Glucophage), 1,000 MG PO BID Metoprolol Succ (Toprol Xl) (Toprol-Xl ), 100 MG PO DAILY Multivitamin (Multivitamin), 1 TAB PO QPM Pantoprazole (Protonix), 40 MG PO QAM Ranitidine (Zantac), 1 TAB PO BID Simvastatin (Zocor), 40 MG PO QPM Scheduled PRN Baclofen (Lioresal), 10 MG PO TID PRN for . Hydrocodone/Acetaminophen 10MG/325MG ([place] 10MG/325MG), 1 TAB PO Q4H PRN for Pain Ketorolac (Toradol), 10 MG PO Q6 PRN for Pain Nitroglycerin (Nitrostat), 0.4 MG UT PRN PRN for Chest Pain Allergies Coded Allergies: Latex (Verified Allergy, Unknown, RASH, 06/27/17) Sulfa Drugs (Verified Allergy, Unknown, SEVERE ALLERGY "COULD ", ) Amoxicillin (Verified Adverse Reaction, Mild, VOMITING, 06/27/17) Clarithromycin (Verified Adverse Reaction, Mild, GI UPSET, 06/27/17) Clavulanic Acid (Verified Adverse Reaction, Mild, VOMITING, 06/27/17) Physical Exam Vital Signs Date Time Temp Pulse Resp B/P (MAP) Pulse Ox O2 Delivery O2 Flow Rate FiO2 06/27/17 19:47 67 18 171/75 96 06/27/17 19:05 65 18 169/103 95 Room Air 06/27/17 17:29 73 06/27/17 17:10 67 18 170/98 95 Room Air 06/27/17 17:05 95 Room Air 06/27/17 16:01 36.9 79 20 239/76 95 Room Air Physical Exam GENERAL: Awake, alert, fatigue-appearing, in no distress HENT: Normocephalic, atraumatic. Oropharynx shows dry mucus membranes. EYES: Normal conjunctiva. Sclera non-icteric. NECK: Supple. No nuchal rigidity. FROM. No JVD. RESPIRATORY: Diminished at the bases otherwise clear to auscultation. CARDIAC: Regular rate, normal rhythm. Extremities warm and well perfused. Pulses equal. ABDOMEN: Soft, non-distended. No tenderness to palpation. No rebound or guarding. No masses. Obese. RECTAL: Deferred. MUSCULOSKELETAL: Chest examination reveals no tenderness. The back is symmetrical on inspection without obvious abnormality. There is no CVA tenderness to palpation. No joint edema. LOWER EXTREMITIES: Calves are equal size bilaterally and non-tender. No discoloration. 2+ edema bilaterally and symmetric. NEURO: Normal sensorium. No sensory or motor deficits noted. SKIN: No rash or jaundice noted. Medical Decision & Procedures ER Provider Diagnostic Interpretation: Radiology results as stated below per my review and radiologist interpretation: CHEST ONE VIEW PORTABLE CLINICAL HISTORY: Atypical chest pain. Swollen feet. COMPARISON STUDY: 03/22/2017 FINDINGS: There are postsurgical changes of a midline sternotomy. The cardiac and mediastinal contours remain stable. There is no failure. There is no focal pulmonary consolidation. There are no pleural effusions.[ IMPRESSION: No active disease in the chest. Electronically signed by: Perry Durán M.D. 06/27/2017 4:48 PM Dictated Date/Time: 06/27/2017 4:[address] ANGIOGRAM OF THE CHEST CLINICAL HISTORY: Atypical chest pain. Feet swelling. Difficulty breathing COMPARISON STUDY: Chest x-ray dated 06/27/2017 TECHNIQUE: Following the IV administration of 100 mL of Optiray-320, CT angiogram of the thorax was performed from the thoracic inlet to the lung bases utilizing the pulmonary embolus protocol. Images are reviewed in the axial, sagittal, and coronal planes. IV contrast was administered without complication. MIP imaging was performed. A dose lowering technique was utilized adhering to the principles of ALARA. CT DOSE: 785.00 mGy.cm FINDINGS: Images the upper abdomen reveal cholelithiasis. There is a tiny hiatal hernia. There are mildly enlarged paratracheal lymph nodes measuring up to 13 mm in short axis. There is a mildly enlarged subcarinal lymph node. There are mildly enlarged right hilar lymph nodes. There was no evidence of thoracic aortic dilatation. There were no pulmonary artery filling defects to indicate acute pulmonary embolism. No pleural effusions are visualized. There is no focal pulmonary consolidation. There are minor dependent atelectatic changes. There are postsurgical changes of a midline sternotomy. IMPRESSION: 1. No evidence of acute pulmonary embolism 2. No evidence of focal pulmonary consolidation 3. Mild mediastinal and right hilar adenopathy 4. Cholelithiasis Electronically signed by: Perry Durán M.D. 06/27/2017 6:05 PM Dictated Date/Time: 06/27/2017 6:00 PM VENOUS DOPPLER LWR EXT BILA HISTORY: Pain. Edema. swelling COMPARISON STUDY: 03/22/2017 FINDINGS: There is normal compressibility, flow, and augmentation within the bilateral lower extremity deep venous systems. IMPRESSION: No DVT within the right or left lower extremity. The above report was generated using voice recognition software. It may contain grammatical, syntax or spelling errors. Electronically signed by: Pradeep Archer M.D. 06/27/2017 6:59 PM Dictated Date/Time: 06/27/2017 6:58 PM Laboratory Results 06/27/17 16:38 Red Blood Count 3.68, Mean Corpuscular Volume 97.0, Mean Corpuscular Hemoglobin 32.9, Mean Corpuscular Hemoglobin Concent 33.9, Mean Platelet Volume 11.5, Neutrophils (%) (Auto) 47.4, Lymphocytes (%) (Auto) 33.7, Monocytes (%) (Auto) 10.8, Eosinophils (%) (Auto) 7.5, Basophils (%) (Auto) 0.3, Neutrophils # (Auto ) 2.72, Lymphocytes # (Auto) 1.94, Monocytes # (Auto) 0.62, Eosinophils # (Auto ) 0.43, Basophils # (Auto) 0.02 06/27/17 16:38 Test 06/27/17 16:38 White Blood Count 5.75 K/uL (4.8-10.8) Red Blood Count 3.68 M/uL (4.7-6.1) Hemoglobin 12.1 g/dL (14.0-18.0) Hematocrit 35.7 % (42-52) Mean Corpuscular Volume 97.0 fL (80-100) Mean Corpuscular Hemoglobin 32.9 pg (25-34) Mean Corpuscular Hemoglobin Concent 33.9 g/dl (32-36) Platelet Count 152 K/uL (130-400) Mean Platelet Volume 11.5 fL (7.4-10.4) Neutrophils (%) (Auto) 47.4 % Lymphocytes (%) (Auto) 33.7 % Monocytes (%) (Auto) 10.8 % Eosinophils (%) (Auto) 7.5 % Basophils (%) (Auto) 0.3 % Neutrophils # (Auto) 2.72 K/uL (1.4-6.5) Lymphocytes # (Auto) 1.94 K/uL (1.2-3.4) Monocytes # (Auto) 0.62 K/uL (0.11-0.59) Eosinophils # (Auto) 0.43 K/uL (0-0.5) Basophils # (Auto) 0.02 K/uL (0-0.2) RDW Standard Deviation 50.9 fL (36.4-46.3) RDW Coefficient of Variation 14.3 % (11.5-14.5) Immature Granulocyte % (Auto) 0.3 % Immature Granulocyte # (Auto) 0.02 K/uL (0.00-0.02) Anion Gap 6.0 mmol/L (3-11) Est Creatinine Clear Calc Drug Dose 69.7 ml/min Estimated GFR () 58.1 Estimated GFR (Non- 50.1 BUN/Creatinine Ratio 13.1 (10-20) Calcium Level 8.8 mg/dl (8.5-10.1) Total Bilirubin 0.6 mg/dl (0.2-1) Direct Bilirubin 0.2 mg/dl (0-0.2) Aspartate Amino Transf (AST/SGOT) 25 U/L (15-37) Alanine Aminotransferase (ALT/SGPT) 36 U/L (12-78) Alkaline Phosphatase 54 U/L (45-117) Troponin I < 0.015 ng/ml (0-0.045) Pro-B-Type Natriuretic Peptide 703 pg/ml (0-900) Total Protein 7.5 gm/dl (6.4-8.2) Albumin 3.3 gm/dl (3.4-5.0) Lipase 185 U/L (73-393) Laboratory results reviewed by me ED Course 1613: The patient was evaluated in room C6. A complete history and physical exam was performed. 1906: I reassessed the patient at this time. He is feeling better and resting comfortably. 1926: I reassessed the patient at this time. He is feeling better and resting comfortably. I discussed the results and treatment plan with the patient. I answered all pertaining questions that he had. He expressed understanding and verbalized agreement. The patient will be discharged home. Medical Decision I reviewed the patient's past medical history, medications, and the nursing notes as described above. Differential diagnoses: ACS, CHF, pulmonary hypertension, PE, DVT, and venous insufficiency. The patient is a 72-year-old gentleman with a past medical history of ROYAL on home CPAP presents emergency Department with persistent dyspnea over the past several days although he still is able to play his trombone as he normally does per history of present illness. Arrival the patient is in no acute distress, afebrile with stable vital signs. On exam the patient has to miss breast sounds at the bases but otherwise clear. 2+ symmetric bilateral lower extremity pitting edema which the patient reports is new. EKG unremarkable with incomplete right bundle-branch block and LVH that is similar to prior, otherwise no signs of acute ischemia. Troponin negative in the setting of several days of constant symptoms. BNP within normal limits. CXR unremarkable. Given the patients reported new lower extremity edema in the setting of dyspnea and clear chest x-ray concerned for PE. CTA was done and negative for pulmonary embolism. BLE duplex negative for DVT. Upon further discussion with the patient the patient realizes that he may have been missing his blood pressure medication for the past few days accidentally. Likely explains the patient's elevated blood pressure on arrival. Moreover, this could also explain his new lower extremity edema and dyspnea. Given the patient s oxygenation is within normal limits and CXR is clear, presentation is not consistent with hypertensive emergency. Considering patient is otherwise well- appearing and w/u is without any emergent findings it is reasonable to have the patient follow up outpatient for further evaluation. Patient will f/u with his pcp as well as his keno attendant, Dr. Bellamy. Findings and plan for follow-up reviewed with patient. Patient agreeable and d/c'd per discharge instructions. Medication Reconcilliation Current Medication List: was personally reviewed by me Blood Pressure Screening Patient's blood pressure: Elevated blood pressure Blood pressure disposition: Referred to PCP Impression Primary Impression: Dyspnea Scribe Attestation The scribe's documentation has been prepared under my direction and personally reviewed by me in its entirety. I confirm that the note above accurately reflects all work, treatment, procedures, and medical decision making performed by me. Departure Information Dispostion Home / Self-Care Referrals No Doctor, Assigned (PCP) Patient Instructions ED Dyspnea Shortness of Breath, My [facility] Additional Instructions Please follow up with your primary care physician in the next 1-3 days as well as with your keno attendant within the next week for re-evaluation. The cause of your symptoms is not completely clear however may have been provoked by missing your blood pressure medication for several days. Otherwise, your exam, EKG, chest xray, CT scan of your chest, ultrasound of your legs, and lab results did not show signs of an emergent condition at this time. Return to the emergency department for worsening symptoms as described in the accompanying instructions.
--- NOTE | 2017-06-27 19:00 | DIAGNOSTIC IMAGING REPORT ---
VENOUS DOPPLER LWR EXT BILA HISTORY: Pain. Edema. swelling COMPARISON STUDY: 03/22/2017 FINDINGS: There is normal compressibility, flow, and augmentation within the bilateral lower extremity deep venous systems. IMPRESSION: No DVT within the right or left lower extremity. The above report was generated using voice recognition software. It may contain grammatical, syntax or spelling errors. Electronically signed by: Pradeep Archer M.D. 06/27/2017 6:59 PM Dictated Date/Time: 06/27/2017 6:58 PM
[2017-06-27 19:47] VITALS: BP 171/75; PULSE 67; O2SAT 96
== END 2017-06-27 19:47 | disposition home or self-care (01) ==
LOC: C.EDB 15:50 → C.EDC 19:47
DX: R06.00 Dyspnea, unspecified (principal); R60.0 Localized edema; E11.9 Type 2 diabetes mellitus without complications; E78.5 Hyperlipidemia, unspecified; I10 Essential (primary) hypertension; K21.9 Gastro-esophageal reflux disease without esophagitis; G47.30 Sleep apnea, unspecified; Z79.4 Long term (current) use of insulin; Z79.82 Long term (current) use of aspirin; Z95.1 Presence of aortocoronary bypass graft; Z82.49 Family history of ischemic heart disease and other diseases of the circulatory system

== ENCOUNTER → 2017-08-01 | Outpatient (CLI) | payer BC ==
[~2017-08-01] VITALS: Ht 180.3 cm; Wt 138.2 kg
[~2017-08-01] MED LIST changes: +BACL10TA PO; +HYDR-4079 PO; +KETO10TA PO; -KETO1AER EXT
[2017-08-01 15:32] VITALS: BP 159/88; PULSE 87; Ht 180.3 cm; Wt 138.2 kg
== END | disposition home or self-care (01) ==
LOC: C.NEUR 14:20
PROVIDERS: ATTEND Internal Medicine Pulmonary Disease
DX: G47.30 Sleep apnea, unspecified (principal)

== ENCOUNTER → 2017-08-24 | Outpatient (CLI) | payer BC ==
[2017-08-24 10:07] LABS: BASO % 0.6 %; BASO ABS # 0.04 K/uL (0-0.2); EOS % 8.5 %; EOS ABS # 0.53 K/uL (0-0.5); HEMATOCRIT 37.8 % (42-52); HEMOGLOBIN 12.8 g/dL (14.0-18.0); IG# 0.02 K/uL (0.00-0.02); LYMPH % 33.7 %; LYMPH ABS # 2.09 K/uL (1.2-3.4); MEAN CELL VOLUME 97.9 fL (80-100); MEAN CORPUSCULAR HEMOGLOBIN 33.2 pg (25-34); MEAN CORPUSCULAR HGB CONC 33.9 g/dl (32-36); MEAN PLATELET VOLUME 11.6 fL (7.4-10.4); MONO % 14.5 %; NEUT % 42.4 %; NEUT ABS # 2.62 K/uL (1.4-6.5); PLATELET COUNT 184 K/uL (130-400); RED CELL DISTRIBUTION WIDTH CV 14.3 % (11.5-14.5); RED CELL DISTRIBUTION WIDTH SD 50.7 fL (36.4-46.3)
[2017-08-24 10:42] LABS: ALT/SGPT 38 U/L (12-78); AST/SGOT 28 U/L (15-37); BLOOD UREA NITROGEN 24 mg/dl (7-18); CALCIUM 9.3 mg/dl (8.5-10.1); CARBON DIOXIDE 24 mmol/L (21-32); CREATININE 1.48 mg/dl (0.60-1.40); GLUCOSE 79 mg/dl (70-99); POTASSIUM 4.2 mmol/L (3.5-5.1); SODIUM 138 mmol/L (136-145)
[2017-08-24 10:47] LABS: CHOLESTEROL 97 mg/dl (0-200); LDL CHOLESTEROL CALCULATED 44 mg/dl
[2017-08-24 10:53] LABS: HEMOGLOBIN A1C 5.7 % (4.5-5.6)
== END | disposition home or self-care (01) ==
LOC: C.LAB1850 09:01
PROVIDERS: ATTEND Physician Assistant
DX: E11.9 Type 2 diabetes mellitus without complications (principal); I10 Essential (primary) hypertension; E78.00 Pure hypercholesterolemia, unspecified; Z79.4 Long term (current) use of insulin

== ENCOUNTER → 2017-11-27 | Outpatient (CLI) | payer BC ==
[~2017-11-27] MED LIST changes: +RANI150T85 PO; -ZNTT/150 PO
[2017-11-27 12:12] LABS: HEMATOCRIT 37.8 % (42-52); HEMOGLOBIN 12.7 g/dL (14.0-18.0); MEAN CELL VOLUME 97.4 fL (80-100); MEAN CORPUSCULAR HEMOGLOBIN 32.7 pg (25-34); MEAN CORPUSCULAR HGB CONC 33.6 g/dl (32-36); MEAN PLATELET VOLUME 12.1 fL (7.4-10.4); PLATELET COUNT 173 K/uL (130-400); RED CELL DISTRIBUTION WIDTH CV 14.5 % (11.5-14.5); RED CELL DISTRIBUTION WIDTH SD 51.3 fL (36.4-46.3); WHITE BLOOD COUNT 6.79 K/uL (4.8-10.8)
[2017-11-27 12:24] LABS: HEMOGLOBIN A1C 5.6 % (4.5-5.6)
== END | disposition home or self-care (01) ==
LOC: C.LAB1850 10:55
PROVIDERS: ATTEND Internal Medicine
DX: E11.9 Type 2 diabetes mellitus without complications (principal); Z79.4 Long term (current) use of insulin; I10 Essential (primary) hypertension; I48.92 Unspecified atrial flutter; E78.00 Pure hypercholesterolemia, unspecified; D64.9 Anemia, unspecified

== ENCOUNTER → 2017-11-28 | Outpatient (CLI) | payer BC ==
[~2017-11-28] VITALS: Ht 180.3 cm; Wt 133.0 kg
[2017-11-28 12:54] VITALS: BP 145/73; PULSE 83; Ht 180.3 cm; Wt 133.0 kg
== END | disposition home or self-care (01) ==
LOC: C.NEUR 12:30
PROVIDERS: ATTEND Physician Assistant Medical
DX: G47.30 Sleep apnea, unspecified (principal); E66.01 Morbid (severe) obesity due to excess calories; M54.9 Dorsalgia, unspecified; Z88.1 Allergy status to other antibiotic agents; Z88.2 Allergy status to sulfonamides; Z91.040 Latex allergy status

== ENCOUNTER → 2018-03-07 | Outpatient (CLI) | payer BC ==
[2018-03-07 15:33] LABS: HEMOGLOBIN A1C 5.8 % (4.5-5.6)
== END | disposition home or self-care (01) ==
LOC: C.LAB1850 12:50
PROVIDERS: ATTEND Nurse Practitioner Adult Health
DX: E11.9 Type 2 diabetes mellitus without complications (principal); Z79.4 Long term (current) use of insulin; E66.01 Morbid (severe) obesity due to excess calories; R40.0 Somnolence; G47.30 Sleep apnea, unspecified

== ENCOUNTER → 2018-03-19 | Outpatient (CLI) | payer BC | END | disposition home or self-care (01) | LOC: C.LAB1850 16:58 | PROVIDERS: ATTEND Internal Medicine | DX: T14.90XA Injury, unspecified, initial encounter (principal); W57.XXXA Bitten or stung by nonvenomous insect and other nonvenomous arthropods, initial encounter ==

== ENCOUNTER 2022-05-04 06:57 | Observation (INO) ==
[2022-05-04] MEDS ORDERED: fentaNYL citrate 100 MCG/2 ML VIAL ONE (09:17)
[2022-05-04] MEDS ORDERED: HEPARIN (PORCINE) 1000 UNIT/ML 10 ML (CATH LAB USE ONLY) ONE ×2 (09:17→10:31)
[2022-05-04] MEDS ORDERED: niCARdipine HCL INJ 2.5 MG/ML 10 ML AMP ONE (09:17)
[2022-05-04] MEDS ORDERED: NITROGLYCERIN/D5W 100MCG/ML 20ML SYR ONE (09:18)
[2022-05-04] MEDS ORDERED: MIDAZOLAM HCL 1 MG/ML 2ML VIAL ONE (09:18)
--- NOTE | 2022-05-04 09:25 | History & Physical Bridge Note ---
Date of Service May 04, 2022 History & Physical Bridge Note I have examined the patient, reviewed the History & Physical and in the interval since the performance of the History & Physical I have noted the following changes of clinical significance: no changes noted
--- NOTE | 2022-05-04 09:25 | Pre Anesthesia Assessment ---
Date of Service May 04, 2022 Pre Sedation Assessment Vital Signs Pulse Resp BP Pulse Ox O2 Del Method 05/04/22 07:11 72 20 169/77 H 98 Room Air Cardiovascular RRR, no murmur, no edema Respiratory normal respiratory effort, lungs clear to auscultation Pre-Sedation Airway Assessment Smoking Status: Never smoker Hx Sleep Apnea: Yes (wears cpap) Hx Difficult Intubation: No Short, Thick Neck: No Thyromental Distance: > or= 3.5 Finger Breadths Oral Cavity: + WNL Mallampati Class: III ASA: ASA3 NPO Status Date of Last Intake of Fluids: 05/04/22 Time of Last Intake of Fluids: 06:00 Date of Last Intake of Solid Food: 05/03/22 Time of Last Intake of Solid Foods: 22:00 Procedure Planning Contraindications for Sedation: none Current Medications Reviewed: Yes Notes The planned sedation has been discussed with the patient. Informed Consent was obtained. I have identified the patient, determined the appropriateness of sedation and have assessed the patient immediately prior to the procedure. All medicine(s) and interventions are by my order.
[2022-05-04] MEDS ORDERED: LIDOCAINE 1% LOCAL 20 ML VIAL ONE (10:33)
[2022-05-04] MEDS ORDERED: CLOPIDOGREL BISULFATE 300 MG TAB ONE (11:21)
--- NOTE | 2022-05-04 12:06 | Post Anesthesia Assessment ---
Date of Service May 04, 2022 Post Sedation Assessment Vital Signs Pulse Resp BP Pulse Ox O2 Del Method 05/04/22 11:30 64 20 135/74 92 Room Air 05/04/22 11:15 66 20 129/73 92 Room Air 05/04/22 07:11 72 20 169/77 H 98 Room Air Recovery Score Activity: Moves 4 extremities Respiration: Deep Breath/Cough Circulation: +/-20% PreAnes Value Consciousness: Fully Awake Oxygen Saturation: > 92% On Room Air Post Anesthesia Score: 10 Discharge Sedation Level of Care: Fast Track Phase II Post Sedation Plan On clinical assessment, the patient appears to have tolerated the sedation without complications. Patient is recovering as anticipated. Patient will continue to be monitored by nursing and may be discharged when sedation discharge criteria are met per below protocol. Upon Completions of procedure up to 15 minutes continue every 5 minute vital signs and the P.A.R. score; then discharge to a Phase I or Fast Track to Phase II per the following guidelines: * Discharge Patient to appropriate Phase II area if PAR is 8 or greater or return to pre- procedure baseline. The post - procedure orders will be as directed. * If PAR score is less than 8 or not return to pre-procedure baseline then patient will follow Phase I monitoring till PAR is reached for Phase II. The Phase I may be done in procedure room or may call to secure a Phase I area. * If naloxone or flumazenil are used for reversal, hold in Phase I for continued monitoring from when last reversal dose was given for a minimum of 60 minutes or longer pending the nurse and/or physician discretion of patient condition before discharge to Phase II. Please call the Sedation Physician to re-evaluate and complete post-note for discharge to Phase II area. Do NOT discharge from procedure sedation or Phase 1 until post- sedation evaluation note is complete by procedure /sedation MD Sedation Discharge Instructions to be given to the patient at discharge to home.
[2022-05-04] MEDS ORDERED: NITROGLYCERIN SL 0.4 MG/TAB TAB SL PRN (12:07)
[2022-05-04] MEDS ORDERED: ACETAMINOPHEN 325 MG TAB PO PRN (12:07)
[2022-05-04] MEDS ORDERED: ONDANSETRON INJ 2 MG/ML 2 ML VIAL IV PRN (12:07)
[2022-05-04] MEDS ORDERED: GLUCOSE 40% GEL 15 GM TUBE PO PRN (12:15)
[2022-05-04] MEDS ORDERED: DEXTROSE 50% 50 ML SYRINGE IV PRN (12:15)
[2022-05-04] MEDS ORDERED: CARBOHYDRATES FOR HYPOGLYCEMIA PO PRN (12:15)
[2022-05-04] MEDS ORDERED: SODIUM CHLORIDE 0.9% 1000ML 1,000 ML IV SCH (12:15)
[2022-05-04] MEDS ORDERED: GLUCAGON FOR INJ 1 MG VIAL SQ PRN (12:15)
[2022-05-04] MEDS ORDERED: GLUCOSE 10 TAB/TUBE PO PRN (12:15)
[2022-05-04] MEDS ORDERED: PHARMACY GLYCEMIC MGMT CONSULT PRN (12:15)
--- NOTE | 2022-05-04 12:24 | Post Operative Brief Note ---
Cardiology Brief Post Op Date of Surgery May 04, 2022 Pre & Post Diagnosis Coronary artery disease Abnormal stress Procedure Coronary angiography, bypass graft angiography, left heart catheterization, IVUS PCI of protected left main into circumflex with single DEBRA (3.0 x 15 mm Andreas; postdilated with 4.0 NC). Airline Operations Agent Harry Ndiaye MD Sewing Machinist ring packer Estimated Blood Loss 15 Findings See Below Patent GLEZ to LAD, SVG to PDA/PLB. Occluded SVG to OM 99% ostial LAD with LALI I flow into diagonal 98% ostial circumflex. 100% distal circumflex occlusion 95% distal RCA Successful PCI of left main into proximal circumflex with 3.0 x 15 mm Andreas medical postdilated 4.0 NC Anesthesia Type RN Sedation Complications none Disposition Accompanied Patient To Recovery: No Disposition: PCU Overlapping Procedure I was present for: the critical portions of procedure. I was immediately available: during the entire case. Back up surgeon: was not required during procedure.
[2022-05-04] MEDS ORDERED: INFLUENZA VACCINE HIGH DOSE PF 65+ 0.7 ML SYR IM ONE (12:45)
[2022-05-04] MEDS ORDERED: INSULIN ASPART PER UNIT SC SCH ×2 (13:00→16:30)
--- NOTE | 2022-05-04 13:26 | Cardiac Catheterization ---
[facility] Data: Audio Visual Equipment Rental Clerk Cardiac Status Clinical evaluation leading to the procedure CAD Presenation: Positive Stress Test Anginal Classification: CCS III Diagnostic Physicians Name: Harry Ndiaye MD Closure Device Recommendations: Medical Therapy and/or Counseling Cardiac Cath Procedure Full Procedure Date May 04, 2022 Pre-Procedure Diagnosis Pre-Procedure Diagnosis: Angina and Positive Stress Test AUC Score AUC Score: 7 Post-Procedure Diagnosis Post-Procedure Diagnosis: Severe CAD, Successful PCI and Elevated Intracardiac Pressures Procedure(s) Performed Procedure(s) Performed: Coronary Angiography, Left Heart Cath, Right Heart Cath, Drug Eluting Stent, IVUS and Bypass Graft Angiography Automotive Parts Manager Harry Ndiaye MD Collar Pointer(s) Wallcovering Texturer Estimated Blood Loss Estimated Blood Loss: 15 Medication(s) Medication(s): Clopidogrel, Fentanyl, Heparin, Lidocaine 1%, Nicardipine, Nitroglycerin and Versed Summary of Findings Indication: Coronary artery disease post CABG, exertional dyspnea, abnormal stress test Access: 6 Fr left radial artery Catheters: JR4, JL 4, SYLWIA, MPA, AL-1. EBU 3.5 guide Findings: LM -Short, calcified, no CV disease LAD -subtotal ostial occlusion. Small D1 with LALI I flow Circumflex -medium caliber, calcified, 98% ostial stenosis, 100% distal circumflex occlusion just after takeoff of OM 2. Distal circumflex fills via right to left collaterals. Medium caliber OM 2 with 50% proximal stenosis. Vein graft anastomosis in the midsegment of OM2 with no competitive flow. RCA -large caliber vessel, calcified, 95% distal diffuse disease. GLEZ to LADwidely patent. LAD after anastomosis small without significant disease. Retrofills into proximal LAD, D1. SVG to PDAwidely patent. Retrofilled into right PLB which gives off right to left collaterals to distal circumflex SVG to OMoccluded LVEDP -21 -- PCI -- Antithrombotic therapy: Heparin, clopidogrel Procedure: Left main cannulated with EBU 3.5 guide Pre-procedure flow LAIL 2-3 Hospital Laboratory Technician 50 wire passed across lesion into distal vessel Ostial circumflex with lesion predilated with 2.0 and 2.5 compliant balloons [place] IVUS catheter placed into mid circumflex. Pullback revealed heavily calcified disease in proximal circumflex with eccentric calcified plaque at circumflex ostium. Left main without significant disease. Dilated lesion stented with 3.0 x 15 mm [place] drug-eluting stent extending from left main to proximal circumflex Stent post-dilated with 4.0 noncompliant balloon Repeat IVUS revealed well apposed stent, underexpanded at circumflex ostium Stent postdilated again with NC balloon diameters IC vasodilators administered for spasm Post procedure LALI 3 flow, stent well expanded with minimal residual stenosis and no apparent cardiac complications. Arterial Closure: TR band Summary: 1. Severe multivessel [place] coronary artery disease -98% ostial circumflex, 100% distal circumflex after OM 2. Distal circumflex fills via right to left collaterals. Chronic subtotal ostial LAD occlusion. 95% diffuse distal RCA 2. Widely patent GLEZ to LAD, SVG to R-PDA. 3. SVG to OM 2 occluded 4. Elevated intracardiac filling pressure (LVEDP 21) 5. Successful PCI of ostial circumflex with single drug-eluting stent (3.0 x 15 mm [place] postdilated with 4.0 NC) from left main to proximal circumflex. Recommendations: To PCU for continued monitoring Loaded with clopidogrel 600 mg in Audio Visual Equipment Rental Clerk Continue dual-antiplatelet therapy for at least 6 months. Continue statin, and ASCVD risk factor modification Consult cardiac Rehab Interruption of DAPT for elective noncardiac surgery could be considered after 3 months. Hemodynamics Rest Ao:: 131/61/94 Final Ao: 137/65/98 LV: 133/21 Recommendations Recommendations: Medical Therapy and/or Counseling Specimens Specimens: None Radiation Exposure (mGy) 5387 Contrast (mls) 110 Anesthesia Moderate [id number] Procedural Complication(s) None Disposition PCU I attest to the content of the Intraoperative Record and any orders documented therein. Any exceptions are noted below. [facility] Card Cath Procedure Codes Cardiac Catheterization Procedure 1: Cardiovascular Cath Procedures: 67208 Coronaries & LHC (+/-LV) & Grafts/IM (arterial & venous) Moderate Sedation Procedure 1: Sedation/Anesthesia: 68612 Mod Sedation by the same physician;Init15 Min Child Age 5 & Up Procedure 2: Sedation/Anesthesia: 19488 Mod Sedation by the same physician; Ea [id number] Minutes Stenting Procedure 1: Cardiovascular Stent Procedures: 13241 Perc transcatheter placement of intracoronary stent(s), with ang PG Care Time/CCT Total # of Minutes Spent Total Time Spent with Patient: Total time spent is greater than 50% in coordination of care (as documented) at patient's floor/unit and/or counseling patient:
--- NOTE | 2022-05-04 15:03 | Pharmacy Report ---
Pharmacy Glycemic Sign Off Nt - Date of Service May 04, 2022 - Assessment & Plan ASSESSMENT: * Pharmacy was consulted by Dr Ndiaye on 05/04/22 for glycemic control and to write orders per [facility] inpatient glycemic control protocol. * Extensively discussed antidiabetic regimen with patient this afternoon. Patient uses complicated Humalog sliding scale at home and is unable to provide further details on dosing besides that he administers ~30 units/day. He refused initial Novolog dose based on BSG of 111 mg/dL and would prefer not to use carbohydrate coverage while here. He would prefer to dictate insulin per home method. Patient with well-controlled HbA1c as outpatient. Discussed with Dr. Ndiaye who is agreeable to patient managing. * Please see recommendations for outpatient antidiabetic regimen below. PLAN FOR INPATIENT GLYCEMIC CONTROL: * Continue basal insulin with Lantus 40 units SC w/ dinner + NPH 30 units SC HS (patient may self-adjust dosing if needed) * Continue NovoLog per patient dictated scale Order updated, pharmacy is signing off of glycemic consult and will no longer be making adjustments to inpatient regimen. Please feel free to re-consult if patient is unable to provide insulin dosing decisions while inpatient. Thank you.
[2022-05-04] MEDS ORDERED: LANTUS PER UNIT CHARGE SQ SCH ×2 (16:30→21:00)
[2022-05-04] MEDS: INSULIN ASPART PER UNIT SC SCH ×2 (16:57→21:24)
[2022-05-04] MEDS ORDERED: FEXOFENADINE HCL 180 MG TAB PO SCH (21:00)
[2022-05-04] MEDS ORDERED: ATORVASTATIN 40 MG TAB PO SCH (21:00)
[2022-05-04] MEDS ORDERED: CYANOCOBALAMIN (B-12) 500 MCG TABLET PO SCH (21:00)
[2022-05-04] MEDS ORDERED: INSULIN HUMAN NPH SC SCH (21:00)
[2022-05-05 05:59] LABS: Basophils # (auto) 0.07 K/uL (0-0.2); Basophils % (auto) 1.3 %; Eosinophils # (auto) 0.43 K/uL (0-0.50); Eosinophils % (auto) 8.2 %; Hematocrit (blood only) 30.5 % (40.1-51.0); Hemoglobin 9.9 g/dl (14.0-18.0); Immature Granulocytes # (auto) 0.02 K/uL (0.00-0.02); Immature Granulocytes % (auto) 0.4 %; Lymphocytes # (auto) 1.24 K/uL (1.2-3.4); Lymphocytes % (auto) 23.7 %; Mean Corpuscular Hemoglobin 28.9 pg (25.0-34.0); Mean Corpuscular Hgb Conc 32.5 g/dL (32.0-36.0); Mean Corpuscular Volume 89.2 fL (80.0-100.0); Mean Platelet Volume 12.3 fL (9.4-12.4); Monocytes % (auto) 17.2 %; Neutrophils # (auto) 2.58 K/uL (1.4-6.5); Neutrophils % (auto) 49.2 %; Platelet Count 186 K/uL (130-400); RDW Coefficient of Variation 16.8 % (11.5-14.5); RDW Standard Deviation 54.3 fL (36.4-46.3); Red Blood Count 3.42 M/uL (4.63-6.08); White Blood Count 5.24 K/ul (4.8-10.8)
[2022-05-05 06:25] LABS: BUN Creatinine Ratio 13.8 (10-20); Calcium 9.4 mg/dl (8.5-10.1); Creatinine Clr Calc Pharmacy 44.8 ml/min; Est GFR (African American) 37.9 ml/min; Est GFR (Non-African American) 32.7 ml/min; Potassium 3.5 mmol/L (3.5-5.1)
[2022-05-05] MEDS: amLODIPine BESYLATE 5 MG TAB PO SCH ×2 (08:08→09:17)
[2022-05-05] MEDS: INSULIN ASPART PER UNIT SC SCH (08:23)
[2022-05-05] MEDS ORDERED: CHOLECALCIFEROL 1,000 UNITS 25 MCG TAB PO SCH (09:00)
[2022-05-05] MEDS ORDERED: MULTIVITAMIN TAB PO SCH (09:00)
[2022-05-05] MEDS ORDERED: CLOPIDOGREL BISULFATE 75 MG TAB PO SCH (09:00)
[2022-05-05] MEDS ORDERED: METOPROLOL SUCC 50MG EXT REL TAB PO SCH (09:00)
[2022-05-05] MEDS ORDERED: PANTOprazole 40 MG TAB PO SCH (09:00)
[2022-05-05] MEDS ORDERED: ASPIRIN 81 MG ECTAB PO SCH (09:00)
--- NOTE | 2022-05-05 10:32 | Discharge Summary ---
Date of Service May 05, 2022 Admission HPI Per Admitting Provider This is a 75-year-old gentleman who has a history of diabetes, hypertension and coronary artery disease which includes coronary bypass surgery in May of 2008 at [facility]. At that time he had a GLEZ to the LAD, a saphenous vein graft to the PDA and posterior ventricular branch and a saphenous vein graft to the obtuse marginal. He had a sternal wound infection as well as having postoperative atrial flutter. His atrial flutter became difficult to control (he had multiple cardioversions) and he required flutter ablation at [facility] by Dr. White and has had no further difficulty with that that he is aware of. He does have a long history of obesity. He has chronic kidney disease and follows with nephrology. He did have a stress echo performed on October 16, 2018, this showed normal left ventricular function but it was felt that he had apical akinesis with exercise and his metoprolol was increased. He developed exertional symptoms which were a little bit atypical for angina but were quite worrisome and were not terribly dissimilar to what he experienced prior to his bypass surgery. His symptoms are dyspnea on exertion and an atypical chest heaviness however he also describes intermittent dizziness with exertion requiring him to sit down, this occurs quickly with heavy work. He did have an MCOT monitor during which he did have the symptoms and they did not seem to be arrhythmia related.. He therefore had a dobutamine stress echo performed on April 11, 2022. This was abnormal at 86% of his maximal predicted heart rate, he did have chest discomfort during the test which resolved during recovery and the echo images showed hypokinesis of the mid inferolateral wall which became severely hypokinetic with dobutamine infusion in the anterolateral wall became hypokinetic as well as the distal anterior wall. The left ventricular systolic function declined somewhat in the LV became mildly dilated with dobutamine infusion. This is consistent with symptoms related to coronary artery disease. Discharge Data Consultations 05/04/22 12:11 Consult Cardiac Rehabilitation Routine Procedures Performed Operation Date: 05/04/22 09:30 Actual Procedures p Drug Eluting Stent SGl Vessel - Irvin Ndiaye MD s Cineradiography w/Routine Exam - Irvin Ndiaye MD s Cath, Left w/Cors Vent Grafts - Irvin Ndiaye MD s IVUS Coronary Single Vessel - Irvin Ndiaye MD Hospital Course (1) CAD, multiple vessel: Patient underwent cardiac catheterization via LT radial artery: Summary: 1. Severe multivessel kenaitze coronary artery disease -98% ostial circumflex, 100% distal circumflex after OM 2. Distal circumflex fills via right to left collaterals. Chronic subtotal ostial LAD occlusion. 95% diffuse distal RCA 2. Widely patent GLEZ to LAD, SVG to R-PDA. 3. SVG to OM 2 occluded 4. Elevated intracardiac filling pressure (LVEDP 21) 5. Successful PCI of ostial circumflex with single drug-eluting stent (3.0 x 15 mm [place] postdilated with 4.0 NC) from left main to proximal circumflex. Post procedure admitted for observation and IV fluids. During admit no chest symptoms, telemetry unremarkable. On hospital day 2 feeling well. No apparent access site complications. Post procedure Hb stable. SCr unchanged at 2.0. Discharged to home on DAPT with ASA/Clopidogrel. Follow-up with Dr. Ndiaye in 1-2 weeks. Will arrange cardiac rehab. Coding Level of Care Code 41670 OBS Care - Discharge Diagnoses CAD, multiple vessel I25.10
--- NOTE | 2022-05-05 22:35 | Electrocardiogram Report ---
Test Reason : Blood Pressure : / mmHG Vent. Rate : 062 BPM Atrial Rate : 062 BPM P-R Int : 210 ms QRS Dur : 106 ms QT Int : 446 ms P-R-T Axes : 044 -36 123 degrees QTc Int : 452 ms Sinus rhythm with 1st degree A-V block Left axis deviation Nonspecific ST and T wave abnormality Abnormal ECG When compared with ECG of 28-FEB-2022 11:25, Premature ventricular complexes are no longer Present Confirmed by Garcia Lindsay ([id number]) on 05/05/2022 10:35:19 PM Referred By: Jasmeet Bellamy Confirmed By:Garcia Lindsay
== END 2022-05-05 11:11 | disposition home or self-care (01) ==
LOC: 4W 06:57 → CC 06:57
DX: I25.118 Atherosclerotic heart disease of native coronary artery with other forms of angina pectoris; E66.9 Obesity, unspecified; I48.92 Unspecified atrial flutter; I45.10 Unspecified right bundle-branch block; Z88.8 Allergy status to other drugs, medicaments and biological substances; Z95.1 Presence of aortocoronary bypass graft; I10 Essential (primary) hypertension; Z79.82 Long term (current) use of aspirin; Z79.899 Other long term (current) drug therapy; Z88.2 Allergy status to sulfonamides; Z68.41 Body mass index [BMI] 40.0-44.9, adult; Z88.1 Allergy status to other antibiotic agents

== ENCOUNTER 2022-11-02 10:23 | Observation (INO) ==
--- NOTE | 2022-09-26 10:54 | PAT Medication Instructions ---
Medication Instructions Date of Service September 26, 2022 Home Medications Medication Instructions Recorded insulin glargine 100 unit/mL (3 40 unit (0.4 mL) subcut QPM #45 mL 04/19/22 mL) subcutaneous pen (Lantus Solostar U-100 Insulin) semaglutide 0.25 mg or 0.5 mg (2 0.5 mg (0.4 mL) subcut Q7D #4.5 mL 05/11/22 mg/1.5 mL) subcutaneous pen injector (Ozempic) amlodipine 5 mg tablet 5 mg PO QAM #90 tabs 05/24/22 atorvastatin 80 mg tablet 80 mg PO HS #90 tabs 05/24/22 betamethasone dipropionate 0.05 % 1 applic topical BID PRN skin 05/24/22 topical cream irritation #45 grams desoximetasone 0.25 % topical cream 1 applic topical BID PRN allergies 05/24/22 #100 grams aspirin 81 mg tablet,delayed 81 mg PO QAM #90 tabs 05/28/22 release clopidogrel 75 mg tablet 75 mg PO QAM #90 tabs 06/01/22 metoprolol succinate 100 mg 150 mg PO QAM #135 tabs 06/10/22 tablet,extended release 24 hr molnupiravir 200 mg capsule (EUA) 800 mg PO Q12H 5 days #40 caps 06/30/22 insulin lispro 100 unit/mL 42 unit (0.42 mL) subcut DAILY #45 07/13/22 subcutaneous pen (Humalog KwikPen mL (U-100) Insulin) irbesartan 300 mg tablet 150 mg PO QAM #45 tabs 07/19/22 mupirocin 2 % topical ointment 1 applic topical BID #15 grams 07/19/22 famotidine 20 mg tablet 20 mg PO QPM #90 tabs 08/10/22 Medication List: cholecalciferol (vitamin D3) 25 mcg (1,000 unit) capsule 1,000 units PO QAM cyanocobalamin (vitamin B-12) 1,000 mcg tablet 1,000 mcg PO HS lancets (OneTouch UltraSoft Lancets) multivitamin (Daily Multi-Vitamin tablet) 1 tab PO QAM hydrocortisone 1 % topical ointment 1 applic topical TID PRN Skin Irritation fexofenadine 180 mg tablet 180 mg PO QPM ketoconazole 2 % shampoo 1 applic topical UD ketoconazole 2 % topical cream 1 applic topical BID PRN allergies, skin irritation and spots nitroglycerin 0.4 mg sublingual tablet 0.4 mg sublingual UD pantoprazole 40 mg tablet,delayed release 40 mg PO QAM vgzofhr-uistgyzxxgwuq-aomhjdzc 250 mg-250 mg-65 mg tablet (Excedrin Extra Stren gth) 2 tab PO BID PRN Pain insulin glargine 100 unit/mL (3 mL) subcutaneous pen (Lantus Solostar U-100 Insulin) 40 unit (0.4 mL) subcut QPM #45 mL insulin NPH isoph U-100 human 100 unit/mL (3 mL) subcutaneous pen (Humulin N NPH U-100 Insulin KwikPen) 30 unit subcut HS semaglutide 0.25 mg or 0.5 mg (2 mg/1.5 mL) subcutaneous pen injector (Ozempic) 0.5 mg (0.4 mL) subcut Q7D #4.5 mL amlodipine 5 mg tablet 5 mg PO QAM #90 tabs atorvastatin 80 mg tablet 80 mg PO HS #90 tabs betamethasone dipropionate 0.05 % topical cream 1 applic topical BID PRN skin irritation #45 grams desoximetasone 0.25 % topical cream 1 applic topical BID PRN allergies #100 grams aspirin 81 mg tablet,delayed release 81 mg PO QAM #90 tabs clopidogrel 75 mg tablet 75 mg PO QAM #90 tabs ferrous sulfate 325 mg (65 mg iron) tablet 325 mg PO Q OTHER DAY metoprolol succinate 100 mg tablet,extended release 24 hr 150 mg PO QAM #135 tabs insulin lispro 100 unit/mL subcutaneous pen (Humalog KwikPen (U-100) Insulin) 42 unit (0.42 mL) subcut DAILY #45 mL irbesartan 300 mg tablet 150 mg PO QAM #45 tabs mupirocin 2 % topical ointment 1 applic topical BID #15 grams famotidine 20 mg tablet 20 mg PO QPM #90 tabs empagliflozin 25 mg tablet 25 mg PO QAM Continue as directed nitroglycerin 0.4 mg sublingual tablet 0.4 mg sublingual UD semaglutide 0.25 mg or 0.5 mg (2 mg/1.5 mL) subcutaneous pen injector (Ozempic) 0.5 mg (0.4 mL) subcut Q7D ASK your prescriber and surgeon aspirin 81 mg tablet,delayed release 81 mg PO QAM clopidogrel 75 mg tablet 75 mg PO QAM (for spinal anesthesia: will need to hold Plavix/clopidogrel for at least 7 days prior to surgery) fofgzbd-rfqcrgkojldby-dbaktgnn 250 mg-250 mg-65 mg tablet (Excedrin Extra Strength) 2 tab PO BID PRN Pain DO NOT take the morning of surgery insulin lispro 100 unit/mL subcutaneous pen (Humalog KwikPen (U-100) Insulin) 42 unit (0.42 mL) subcut DAILY multivitamin (Daily Multi-Vitamin tablet) 1 tab PO QAM cholecalciferol (vitamin D3) 25 mcg (1,000 unit) capsule 1,000 units PO QAM irbesartan 300 mg tablet 150 mg PO QAM ferrous sulfate 325 mg (65 mg iron) tablet 325 mg PO Q OTHER DAY ketoconazole 2 % shampoo 1 applic topical UD hydrocortisone 1 % topical ointment 1 applic topical TID PRN Skin Irritation ketoconazole 2 % topical cream 1 applic topical BID PRN allergies, skin irritation and spots mupirocin 2 % topical ointment 1 applic topical BID betamethasone dipropionate 0.05 % topical cream 1 applic topical BID PRN skin irritation desoximetasone 0.25 % topical cream 1 applic topical BID PRN allergies Take morning of surgery With a small sip of water, OTHERWISE NOTHING TO EAT OR DRINK AFTER MIDNIGHT: metoprolol succinate 100 mg tablet,extended release 24 hr 150 mg PO QAM pantoprazole 40 mg tablet,delayed release 40 mg PO QAM amlodipine 5 mg tablet 5 mg PO QAM Take evening before surgery atorvastatin 80 mg tablet 80 mg PO HS cyanocobalamin (vitamin B-12) 1,000 mcg tablet 1,000 mcg PO HS fexofenadine 180 mg tablet 180 mg PO QPM famotidine 20 mg tablet 20 mg PO QPM insulin glargine 100 unit/mL (3 mL) subcutaneous pen (Lantus Solostar U-100 Insulin) 40 unit (0.4 mL) subcut QPM insulin NPH isoph U-100 human 100 unit/mL (3 mL) subcutaneous pen (Humulin N NPH U-100 Insulin KwikPen) 30 unit subcut HS Other Notes STOP 3 days before surgery: empagliflozin 25 mg tablet 25 mg PO QAM If you have any questions please call us at [phone] or [phone] or [phone] or [phone]
--- NOTE | 2022-10-03 11:19 | Anesthesiology Consultation ---
Date of Service October 03, 2022 Assessment & Plan (1) Encounter for pre-operative examination: Chart Review Chart Review: Acceptable Risk for Surgery and Patient seen in Pre Admission Testing - Check BSG AM DOS - IV bolus NOT ordered for DOS due to CKD Stage IV -Discussed with Dr. Cuello- patient can proceed as scheduled - Pt is NOT an Outpatient Joint candidate Per PAT appt on 10/03/22, patient denies any recent travel or large group activities. Pt is vaccinated for Covid. Will leave to surgeon's discretion if preop Covid testing needed. Educated on importance of using Covid precautions one week prior to surgery Per cardio workload note re: upcoming TKA 09/15/22= "Okay for patient to undergo elective orthopedic surgery and hold Plavix for 7 days prior to surgery in October 2022. After surgery resume Plavix when safe from a surgical standpoint." Pt seen by nephro 08/11/22= Left renal artery stenosis- BP acceptable. No accelerated or symptomatic HTN. No additional evaluation at this time. CKD, Stage IV- baseline creatinine 2.0-2.5. Hypercalcemia- non PTH mediated. Follow up in six months Teaching & Discussion Pre-Anesthesia Teaching/Discussion Notes: Instructed NPO after midnight before surgery,except medications with 15 cc of water. Medication instructions provided according to the PAT guidelines. History Surgery Operation Date: 11/02/22 08:50 Proposed Procedures p Left Total Knee Arthroplasty - Chaitanya Blue MD Height/Weight Height: 5 ft 11 in Weight: 124.3 kg Allergies Allergy/AdvReac Type Severity Reaction Status Date / Time adhesive Allergy Severe blister, Verified 09/26/22 10:09 rash, irritation nickel Allergy Mild Rash Verified 09/26/22 10:09 Sulfa (Sulfonamide Allergy Unknown SEVERE Verified 09/26/22 10:09 Antibiotics) ALLERGY "COULD " amoxicillin AdvReac Mild VOMITING Verified 09/26/22 10:09 clarithromycin AdvReac Mild GI UPSET Verified 09/26/22 10:09 clavulanic acid AdvReac Mild VOMITING Verified 09/26/22 10:09 Medications Home Medications Medication Instructions Recorded Confirmed Last Taken blood sugar diagnostic (OneTouch #10 ea 02/18/19 08/11/22 Unknown Ultra Blue Test Strip) cholecalciferol (vitamin D3) 25 1,000 units PO QAM 02/18/19 09/26/22 Unknown mcg (1,000 unit) capsule cyanocobalamin (vitamin B-12) 1,000 mcg PO HS #30 tabs 02/18/19 09/26/22 Unknown 1,000 mcg tablet lancets (OneTouch UltraSoft #50 ea 02/18/19 08/11/22 Unknown Lancets) multivitamin (Daily Multi-Vitamin 1 tab PO QAM 02/18/19 09/26/22 Unknown tablet) pen needle, diabetic 31 gauge x #30 ea 02/18/19 08/11/22 Unknown 5/16" (BD Ultra-Fine Short Pen Needle) hydrocortisone 1 % topical ointment 1 applic topical TID PRN Skin 04/23/21 09/26/22 Unknown Irritation fexofenadine 180 mg tablet 180 mg PO QPM 02/17/22 09/26/22 Unknown ketoconazole 2 % shampoo 1 applic topical UD 02/17/22 09/26/22 Unknown ketoconazole 2 % topical cream 1 applic topical BID PRN 02/17/22 09/26/22 Unknown allergies, skin irritation and spots nitroglycerin 0.4 mg sublingual 0.4 mg sublingual UD 02/17/22 09/26/22 Unknown tablet pantoprazole 40 mg tablet,delayed 40 mg PO QAM 02/17/22 09/26/22 Unknown release ewupkuw-ejkqubskcxyug-jfauhiys 250 2 tab PO BID PRN Pain 03/09/22 09/26/22 Unknown mg-250 mg-65 mg tablet (Excedrin Extra Strength) insulin glargine 100 unit/mL (3 40 unit (0.4 mL) subcut QPM #45 mL 04/19/22 09/26/22 Unknown mL) subcutaneous pen (Lantus Solostar U-100 Insulin) insulin NPH isoph U-100 human 100 30 unit subcut HS 04/21/22 09/26/22 Unknown unit/mL (3 mL) subcutaneous pen (Humulin N NPH U-100 Insulin KwikPen) semaglutide 0.25 mg or 0.5 mg (2 0.5 mg (0.4 mL) subcut Q7D #4.5 mL 05/11/22 09/26/22 Unknown mg/1.5 mL) subcutaneous pen injector (Ozempic) amlodipine 5 mg tablet 5 mg PO QAM #90 tabs 05/24/22 09/26/22 Unknown atorvastatin 80 mg tablet 80 mg PO HS #90 tabs 05/24/22 09/26/22 Unknown betamethasone dipropionate 0.05 % 1 applic topical BID PRN skin 05/24/22 09/26/22 Unknown topical cream irritation #45 grams desoximetasone 0.25 % topical cream 1 applic topical BID PRN allergies 05/24/22 09/26/22 Unknown #100 grams aspirin 81 mg tablet,delayed 81 mg PO QAM #90 tabs 05/28/22 09/26/22 Unknown release clopidogrel 75 mg tablet 75 mg PO QAM #90 tabs 06/01/22 09/26/22 Unknown ferrous sulfate 325 mg (65 mg 325 mg PO Q OTHER DAY 06/03/22 09/26/22 Unknown iron) tablet insulin lispro 100 unit/mL 42 unit (0.42 mL) subcut DAILY #45 07/13/22 09/26/22 Unknown subcutaneous pen (Humalog KwikPen mL (U-100) Insulin) irbesartan 300 mg tablet 150 mg PO QAM #45 tabs 07/19/22 09/26/22 Unknown mupirocin 2 % topical ointment 1 applic topical BID #15 grams 07/19/22 09/26/22 Unknown famotidine 20 mg tablet 20 mg PO QPM #90 tabs 08/10/22 09/26/22 Unknown empagliflozin 25 mg tablet 25 mg PO QAM 09/26/22 09/26/22 Unknown metoprolol succinate 100 mg 150 mg PO QPM 10/04/22 10/04/22 Unknown tablet,extended release 24 hr Past Medical History Medical History (Updated 10/04/22 @ 11:11 by Swetha Jules PA-C) Anemia H&H: 9-11 over the past 2 years Atrial flutter - Post-op CABG, s/p multiple cardioversions and ablation - Per cardio records- had event monitor- no documented recurrent atrial flutter on his current medication regiment BPPV (benign paroxysmal positional vertigo) No issues x 6 months CAD, multiple vessel s/p CABG x 3 in 2007, follows with [place] [facility]ology S/p DEBRA to Cx on 05/04/22 Chronic kidney disease, stage IV (severe) Follows with [facility] nephrology No dialysis at this time Chronic sinusitis Gastroesophageal reflux disease controlled, stable per pt Hx of renal calculi No recent issues Hypercholesterolemia Hypertension controlled, stable per pt Left renal artery stenosis RBBB (right bundle branch block) Seborrheic keratosis, inflamed "occurs from time to time" Sleep apnea Cannot tolerate CPAP Type 2 diabetes mellitus, with long-term current use of insulin Glucose fair control per patient Exercise / Class Metabolic Activity III < 4 Walking/Shop/Light housework (one flight of stairs- no chest pain or SOB- has to go slow due to knee pain- uses cane for stability ) Past Family History Family History Father Coronary heart disease Parkinson disease Sinusitis Mother Hypertension Palpitations Son Sinusitis Denies family history of Cancer Stroke Asthma Past Surgical History Surgical History History of anesthesia reaction awareness during CABG History of cardiac cath ~, subsequent CABG x 3 History of cardiac catheterization 04/2022 - [place] - failed stress test - DEBRA x 1. History of cataract surgery bilat. History of colonoscopy History of esophagogastroduodenoscopy (EGD) Hx of arthroscopy of left knee Hx of CABG ~, CABG x 3, follows with [facility]ology Hx of tonsillectomy Hx of wisdom tooth extraction Past Anesthesia History No Hx of Anesthesia Complications (with exception to awareness with CABG- otherwise no other issues ) and No Family Hx of Anesthesia Complications History of PONV No Hx of PONV and No Hx of Motion Sickness Social History Smoking Status: Never smoker Do You Dip or Chew Tobacco: No Hx Alcohol Use: No Hx Substance Use: No substance use type: does not use Review of Systems Patient denies chest pain, shortness of breath, dyspnea on exertion, cough, wheezing, palpitations. No hx of seizures, stroke. No hx of blood clots or blood transfusions Physical Exam Vital Signs VITALS BP 133/73 P 58 TEMP 98.0 SP02 95% RESP 16 Constitutional no acute distress ENMT Mouth: no TMJ clicking Thyromental Distance: > or= 3.5 Finger Breadths (3.5) Mallampati Class: I Crowns to side teeth and molars Neck + limited neck extension (significant) Respiratory normal respiratory effort; no respiratory distress Auscultation: lungs clear to auscultation bilaterally; no wheezes Cardiovascular Rate/Rhythm: regular rate and regular rhythm Heart Sounds: + murmur (III/ murmur ) Vessels: no carotid bruit (presumed radiation from the murmur) 2/6 systolic murmur noted 02/2022 per cardio note; DSE 03/2022 showed moderate sclerotic AV without stenosis Musculoskeletal Spine: no pain with cervical ROM Extremities: extremities normal to inspection Psychiatric Orientation: alert Lab Results Anesthesia Preop Results Results Anesthesia Widget: WBC 5.29 K/ul (4.8-10.8) 10/03/22 Hgb 11.5 g/dl (14.0-18.0) L 10/03/22 Hct 34.8 % (42.0-52.0) L 10/03/22 Plt 167 K/uL (130-400) 10/03/22 Na 138 mmol/L (136-145) 10/03/22 K 3.8 mmol/L (3.5-5.1) 10/03/22 Cl 107 mmol/L (98-107) 10/03/22 CO2 26 mmol/L (21-32) 10/03/22 BUN 20 mg/dl (6-23) 10/03/22 Creat 1.90 mg/dl (0.6-1.4) H 10/03/22 Glucose Level 122 mg/dl (70-99(Fasting)) H 10/03/22 PT 11.3 Seconds (9.0-12.0) 10/03/22 PTT 27.6 Seconds (21.0-31.0) 10/03/22 INR 1.1 (0.9-1.1) 10/03/22 HA1c 6.5 % (4.5-5.6) H 10/03/22 Urine Color Yellow 08/08/22 Urine Appearance Clear (Clear) 08/08/22 Urine pH 6.5 (4.5-7.5) 08/08/22 Urine Specific [place] 1.014 (1.000-1.030) 08/08/22 Urine Protein Trace (Negative) H 08/08/22 Urine Glucose (UA) 3+ (Negative) H 08/08/22 Urine Ketones Negative (Negative) 08/08/22 Urine Blood Negative (Negative) 08/08/22 Urine Nitrite Negative (Negative) 08/08/22 Urine Bilirubin Negative (Negative) 08/08/22 Urine Urobilinogen Negative (Negative) 08/08/22 Urine Leukocyte Esterase Negative (Negative) 08/08/22 Urine WBC (Auto) 1-5 /hpf (0-5) 08/08/22 Urine RBC (Auto) 0-4 /hpf (0-4) 08/08/22 Urine Hyaline Casts (Auto) 0 /lpf (0-5) 08/08/22 Urine Epithelial Cells (Auto) 0-5 /lpf (0-5) 08/08/22 Urine Bacteria (Auto) Negative (Negative) 08/08/22 Blood Type A Positive 10/03/22 Antibody Screen NEGATIVE 10/03/22 Testing Laboratory Results Anemia chronic and stable Elevated creatinine chronic and stable Electrocardiogram Date: 10/03/22 Findings: + SB @ (59bpm ) Left axis deviation Incomplete right bundle branch block Nonspecific T wave abnormality When compared to EKG from May 04, 2022- incomplete RBBB is now present per cardio Chest X-Ray Date: 10/03/22 FINDINGS: PA and lateral chest radiographs are compared to study dated 02/28/2022 and correlated with chest CT dated 06/27/2017. The patient is status post midline sternotomy. The heart is enlarged noting atherosclerotic calcification of the thoracic aorta. The pulmonary vasculature is noncongested. Chronic interstitial thickening is similar to previous. There is mild bibasilar scarring/atelectasis. Nipple shadows project over both lung bases. No airspace consolidation or pleu ral effusion is identified. There is no pneumothorax. The bony thorax appears intact. IMPRESSION: Cardiomegaly with no active disease in the chest. Stress Test Date: 04/11/22 Type: DSE Abnormal dobutamine stress echo for ischemia at 86% MPHR Abnormal dobutamine EKG for ischemia at 86% MPHR Appropriate BP response. No arrhythmia. Chest pain reported during dobutamine stress resolved in recovery. Abnormal findings were personally discussed with patient before leaving stress lab on 04/11/2022. Has appointment with primary cardiology this week. Echo findings showed normal LV size with normal systolic function. EF 55 to 60%. Hypokinesis of the mid inferior lateral wall. Moderate concentric LVH. Sclerotic aortic valve without significant stenosis Cardiac Catheterization Date: 05/04/22 Findings: LM -Short, calcified, no CV disease LAD -subtotal ostial occlusion. Small D1 with LALI I flow Circumflex -medium caliber, calcified, 98% ostial stenosis, 100% distal circumflex occlusion just after takeoff of OM 2. Distal circumflex fills via right to left collaterals. Medium caliber OM 2 with 50% proximal stenosis. Vein graft anastomosis in the midsegment of OM2 with no competitive flow. RCA -large caliber vessel, calcified, 95% distal diffuse disease. GLEZ to LADwidely patent. LAD after anastomosis small without significant disease. Retrofills into proximal LAD, D1. SVG to PDAwidely patent. Retrofilled into right PLB which gives off right to left collaterals to distal circumflex SVG to OMoccluded Summary: 1. Severe multivessel chicken ranch coronary artery disease -98% ostial circumflex, 100% distal circumflex after OM 2. Distal circumflex fills via right to left collaterals. Chronic subtotal ostial LAD occlusion. 95% diffuse distal RCA 2. Widely patent GLEZ to LAD, SVG to R-PDA. 3. SVG to OM 2 occluded 4. Elevated intracardiac filling pressure (LVEDP 21) 5. Successful PCI of ostial circumflex with single drug-eluting stent (3.0 x 15 mm [place] postdilated with 4.0 NC) from left main to proximal circumflex. Other Testing Event monitor 04/07/2022 = patient monitored for 27 days and 12 hours. 18 events were transmitted. Heart block occurred 1 timethe most severe 1 degree; slowest 61 bpm. PAC burden of less than 1%. PVC burden of less than 2%. No atrial fibrillation episodes noted Renal Artery Duplex 06/03/19= Elevated peak systolic velocity within the mid left renal artery consistent with a site of hemodynamically significant stenosis. No evidence for right renal artery stenosis. COVID-19 Risk Screen Screening Information COVID-19 Screen Date: 10/03/22 Exposure 21 Days Family/Household +COVID Last 21 Days: No Exposure 10 Days Any COVID Exposure Last 10 Days: No Symptoms Last 10 Days Experienced COVID Sx Last 10 Days: No + COVID 0-90 Days COVID + in Last 0-90 Days: No Risk Plan COVID Risk Plan: No Risk Identified Patient Education COVID Preop Screening Education Complete: Yes
--- NOTE | 2022-10-28 17:40 | History and Physical Report ---
CHIEF COMPLAINT: Persistent progressive left knee pain and discomfort. HISTORY OF PRESENT ILLNESS: The patient is a 77-year-old gentleman, who presents for surgical treatm ent of his left knee. He has got a long history of left knee pain and discomfort and describes it holly s gotten worse over the years. He was initially seen and treated by Dr. Morrow and referred to me. He had been scheduled for knee replacement in the past, but failed his preoperative evaluation. He h as some cardiac stents placed by Dr. Ndiaye and has been on Plavix for over 6 months. He is recoverin g from this and now would like to have his knee fixed. He has lost about 40 pounds. He uses a cane to get along. He would like to have his knee fixed. PAST MEDICAL HISTORY: 1. Hypertension. 2. Elevated cholesterol. 3. Atrial flutter. 4. Coronary artery disease, status post stent placement. 5. Sleep apnea. 6. Diabetes. 7. Obesity with a BMI of 40. 8. Gastroesophageal reflux disease. 9. Back pain/sciatica. 10. Kidney stones. 11. Chronic kidney disease. PAST SURGICAL HISTORY: Includes. 1. CABG in 2007. 2. Cardiac stents placed about 7 months ago. 3. Left knee arthroscopy. 4. Tonsillectomy. ALLERGIES: SULFA. CURRENT MEDICATIONS: 1. Insulin. 2. Irbesartan. 3. Ketoconazole. 4. Metoprolol. 5. Multivitamin. 6. Nitroglycerin. 7. Pantoprazole. 8. Ozempic. 9. Amlodipine. 10. Aspirin. 11. Atorvastatin. 12. Vitamin D3. 13. Vitamin B12. 14. Famotidine. 15. Plavix. 16. Fexofenadine. SOCIAL HISTORY: A 77-year-old male. Lives in [place]. Does not smoke. FAMILY HISTORY: Noncontributory. REVIEW OF SYSTEMS: As above. He has got multiple medical comorbidities. Denies any current chest p ain or shortness of breath. No history of DVT or PE. PHYSICAL EXAMINATION: GENERAL: Physical examination shows a large middle aged/elderly male. HEENT: Benign. NECK: Supple. No lymphadenopathy. LUNGS: Clear to auscultation. HEART: Has a regular rate and rhythm. ABDOMEN: Soft, nontender, and nondistended. EXTREMITIES: Grossly neurovascularly intact except as follows. Examination of the left knee reveals the patient ambulates with use of a cane. He limps on his left side. He has got varus alignment to his knee. Small knee effusion. Tender over the medial joint li ne. Range of motion is 5 to 120. There is no instability. No pain with hip motion. X-RAYS: X-rays of the left knee were reviewed. It shows advanced medial compartment arthritis. He has got a large segment in the medial femoral condyle that has progressed over the past 7 month s. He has got complete loss of the medial joint space. He has got some moderate patellofemoral arth ritis. 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 He has been scheduled for surgery in the past, but canc eled due to some cardiac issues. This has been cleared up and stents have been placed. He has been on Plavix for 6 months. He has been okayed to proceed with the knee replacement surgery at this time . PLAN: We will take him to the operating room and do left total knee replacement. The risks and bene fits of this procedure were explained. He understands and desires to proceed. Informed consent was obtained. He knows to stop his Plavix 7 days before and this has been okayed by Dr. Ndiaye, his assistant hvac mechanic. Jennifer ybarra does have a nickel allergy and we will use a Maher [employer] Nephew knee. He is planning to be discharge d to home using [facility]. We will start him on Plavix postop for DVT prophylaxi s. We will hold all NSAIDs. We will give sliding scale insulin treatment postoperatively. Job ID: [id number]
[~2022-11-02 10:23] MED LIST changes: +ACETAMINOPHEN 500 MG TAB PO SCH; -ASPI325T39 PO; -AZEL30SP NAE; -BACL10TA PO; +BUPIVACAINE 0.5 % 5 MG/1 ML PF 10ML VIAL ONE; +BUPIVACAINE LIPOSOME/PF 266 MG, BUPIVACAINE/EPINEPHRINE 50 ML, SODIUM CHLORIDE 0.9% PF ... INFIL SCH; -CYAN100020 PO; +CeleBREX 200 MG CAP PO SCH; +EPINEPHrine INJ 1 MG/ML AMP ONE; +FAMOTIDINE 20 MG TAB PO SCH; -FEXO1TAB49 PO; -FLNIN NAE; -HYDR-4079 PO; -INSDGI SC; -INSU100I2 SC; -INSU1INJ23 SC; -KETO10TA PO; -KETO2SHA TOP; -LIRA18IN SC; -LOSA100T65 PO; +LR 15ML/HR IV SCH; +LR 60ML/HR IV SCH; -METF1000 PO; -METO100T44 PO; +METOCLOPRAMIDE HCL 10 MG TABLET PO SCH; -MULT-506 PO; -NTRGSL/4 UT; -PANT40TA PO; -RANI150T85 PO; +ROPIVACAINE 0.5% 5 MG/ML 30 ML VIAL ONE; -SIMV40TA2 PO; +TRANEXAMIC ACID 1,000 MG **IV Intra-op IV SCH
[2022-11-02] MEDS ORDERED: PROPOFOL IV EMULSION 10 MG/ML 20 ML VIAL IV ONE ×3 (12:00→15:19)
[2022-11-02] MEDS ORDERED: MIDAZOLAM HCL 1 MG/ML 2ML VIAL ONE (12:00)
[2022-11-02] MEDS ORDERED: ATROPINE SULFATE 0.1 MG/ML 10ML SYR IV PRN (13:19)
[2022-11-02] MEDS ORDERED: ePHEDrine sulfate 50 MG/ML AMP IV PRN (13:19)
[2022-11-02] MEDS ORDERED: BUPIVACAINE LIPOSOME 1.3% 266 MG/20 ML VIAL ONE (13:40)
[2022-11-02] MEDS ORDERED: SODIUM CHLORIDE 0.9% PF 50 ML VIAL ONE (13:40)
[2022-11-02] MEDS ORDERED: BUPIVACAINE/EPINEPHRINE 0.25% 1:200,000 30 ML VIAL ONE (13:40)
--- NOTE | 2022-11-02 13:46 | History & Physical Bridge Note ---
Date of Service November 02, 2022 History & Physical Bridge Note I have examined the patient, reviewed the History & Physical and in the interval since the performance of the History & Physical I have noted the following changes of clinical significance: no changes noted
[2022-11-02] MEDS ORDERED: DEXAMETHASONE SOD INJ 4 MG/ML VIAL ONE (14:13)
[2022-11-02] MEDS ORDERED: PHENYLEPHRINE 100MCG/ML 5ML SYR ONE (14:18)
[2022-11-02] MEDS ORDERED: CARBOHYDRATES FOR HYPOGLYCEMIA PO PRN (16:06)
[2022-11-02] MEDS ORDERED: DEXTROSE 50% 50 ML SYRINGE IV PRN (16:06)
[2022-11-02] MEDS ORDERED: GLUCOSE 10 TAB/TUBE PO PRN (16:06)
[2022-11-02] MEDS ORDERED: GLUCOSE 40% GEL 15 GM TUBE PO PRN (16:06)
[2022-11-02] MEDS ORDERED: GLUCAGON FOR INJ 1 MG VIAL SQ PRN (16:06)
--- NOTE | 2022-11-02 16:08 | Operative Report ---
PG Post Operative Report Pre & Post Diagnosis Operation Date: 11/02/22 12:30 Pre-Op Diagnosis: Degenerative Joint Disease Knee Left Post-Op Diagnosis: Degenerative Joint Disease Knee Left I identified the patient and participated in the time-out.: Yes Procedure Operation Date: 11/02/22 12:30 Actual Procedures p Left Total Knee Arthroplasty(Left) - Chaitanya Blue MD Surgeon Chaitanya Blue MD Flatwork Finisher Myke Coombs PA-C Estimated Blood Loss 50 Findings Consistent with Post-Op Diagnosis Operative findings revealed advanced left knee DJD. Patient had grade 4 [id number] disease in all 3 compartments. He had a large segment of avascular necrosis of the medial femoral condyle. Moderate-sized joint effusion. Specimens Left knee sent for pathology Anesthesia Type Spinal MAC Complications none Disposition Accompanied Patient To Recovery: No Indications Patient is a 77-year-old gentleman who has had a several history of increasing left knee pain discomfort. Has been through extensive conservative treatment. He was actually scheduled for surgery about 7 months ago but got canceled due to some cardiac issues. Cardiac stent placed and is now been cleared to proceed with surgical intervention. Patient has an apparent nickel allergy so we used the Maher & Nephew journey 2 zirconium knee arthroplasty. Description of Procedure Operative implants consisted of: 1. Maher & Nephew size 7 left journey 2 posterior stabilized femoral component. 2. Maher & Nephew journey 2 size 5 tibial tray. 3. 9 mm posterior stabilized polyethylene insert. 4. 35 x 9 all poly patella. The patient was taken the operating, identified, placed on the operating table supine position protectors were properly padded. IV antibiotics tried by anesthesia team. A spinal anesthetic and abductor canal block had provided in the holding area. Left thigh turn was then placed. Left lower extremities then prepped and draped in usual sterile fashion. The left leg was elevated exsanguinated with use of an Esmarch in terms playset 300 mmHg. An anterior approach left knee was then performed to longitudinal incision centered over the patella. Sharp dissection Through subcutaneous tissue down the extensor mechanism. Medial parapatellar arthrotomy incision was made. Some subperiosteal dissection was carried out medially. The fat pad was resected from Neath patella tendon. Lateral patellofemoral ligament was released. Patella was subluxated laterally knee was flexed. The osteophyte taken off distal femur. The ACL and PCL were then released from distal femur the tibia subluxated anteriorly. The external tibial alignment jig was then placed in the anterior face the tibia and just with a 8 mm medially. Proximal tibial cut was made remove about 2 to 3 mm of bone from the medial side. Tibia sized to a size 5. Attention drawn the femur. The distal femur examined the sharp drop with intramedullary canal was suction. A left 6 degree valgus cutting guide was placed. Distal femoral cutting block was pinned in place. Distal femoral cutting block was adjusted to take an additional 2 mm of bone off distal femur. The distal femoral cut was made. The femur was then sized to a size 7. The AP cutting block was pinned parallel to the epicondylar axis which was 4 degrees of external rotation. The anterior cut, anterior cord, posterior cut, posterior chamfer, anterior chamfer cuts were made. The knee was flexed. The remnants of the medial lateral menisci were excised. The femoral component was placed. The box cutting device was placed and the box cut was made. The cochlear implant was placed. The tibial tray was then pinned in maximum external rotation. The drill hole and the punch were used to create defect for the keel for the tibia. The knee was then trialed a 9 mm insert fit most appropriately. Attention drawn the patella. The patella was cleaned of all soft tissues. Patella thickness measured 22 mm in thickness was cut down to a 13. It was sized to a size 35 patella. The lug holes were drilled for 35 patella. The lateral osteophyte was removed. Patella button was placed. Knee was taken through range of motion patella tracked nicely with no thumbs test. Attention drawn to placing permanent components. Nupathe all trial components were removed. Bone plug was placed in the distal femur limit blood loss. Double batch [place] G cement was mixed. A Maher & Nephew a size 7 posterior stabilized femoral component, size 5 tibial tray, 9 mm posterior stabilized polyethylene insert, and a 35 x 9 all Paller patella then cemented in place. New spreadout in full extension till cement hardened. Final cement check was then performed. The pericapsular tissues were injected with total 100 cc of combination of 20 cc of Exparel, 30 cc normal saline, 50 cc of quarter percent Marcaine with epinephrine. Patient did receive 1 g tranexamic acid. The tourniquet was let down for final tourniquet time of 67 minutes. Hemostasis assured with electrocautery. Extensor mechanism then closed with combination 1 PDS suture #1 Vicryl suture in a [id number] fashion. Extensor mechanism checked found to be intact with subcutaneous tissues then closed with 2 Dexon suture in a buried interrupted fashion skin was closed skin rome. Leg was then cleaned and dried and sterile dressed with Xeroform, 4 fours, sterile cast padding, Owen bandage were applied. Patient then transferred to the recovery room in stable condition. Patient tolerated procedure well and there were no complications. Myke Coombs, my physician research program assistant, was present for the entire procedure. His assistance was essential and required for appropriate patient positioning, prepping and draping, surgical exposure, performing the technical details of the operation, placement the implants, closure of the wound, and placement of the sterile bandage. I attest to the content of the Intraoperative Record and any orders documented therein. Any exceptions are noted below.
--- NOTE | 2022-11-02 16:21 | XRay Report ---
TWO VIEWS LEFT KNEE CLINICAL HISTORY: Postoperative examination. FINDINGS: AP and crosstable lateral portable views of the left knee are obtained. A left knee arthrop lasty is in near anatomic alignment. There has been undersurface remodeling of the patella. No acute fracture is seen. There are expected postoperative changes around the knee including skin clips, soft tissue edema, and subcutaneous gas. Surgical clips are present in the distal thigh and upper calf. T here is atherosclerotic calcification of the regional arteries. IMPRESSION: Expected postoperative changes status post left knee arthroplasty. No acute fracture is s een. ACT 112: Negative or not required by law. Electronically signed by: Luis Parish M.D. 11/02/2022 4:20 PM
--- NOTE | 2022-11-02 16:31 | Anesthesiology Progress Note ---
Date of Service November 02, 2022 Anesthesia Post Procedure Vital Signs Vital Signs: Temp Pulse Pulse Resp BP Pulse Ox O2 Del Method 11/02/22 16:02 36.0 C L 84 18 108/54 L 94 Oxymask 11/02/22 10:57 36.6 C 80 20 160/75 H 96 Room Air O2 Flow Rate 11/02/22 16:02 9 11/02/22 10:57 Transfer of Care Handoff Completed per policy Notes Mental Status: alert / awake / arousable Patient Amnestic to Procedure: Yes Nausea / Vomiting: adequately controlled Pain: adequately controlled Airway Patency, RR, SpO2: stable & adequate BP & HR: stable & adequate Hydration State: stable & adequate Anesthetic Complications: no major complications apparent and see Notes below Notes: patient had some ST depressions towards the end of case which appear to be improving in PACU. See supplemental communication note for details.
--- NOTE | 2022-11-02 16:37 | Communication Note ---
Date of Service: November 02, 2022 Patient had TKA under spinal anesthetic with moderate propofol sedation. Around the time of touniquet release, he had 1-[address] depression evident in the rhythm strip. BP at the time was MAP 65-75. Blood pressure was treated at the sedation was stopped with some improvement in his ST depression. By the time of arrival in PACU, 12 lead ECG showed TWIs in the lateral leads with mild ST depression in the far lateral leads, this did improve with further wakening and improvement in his BP. After awakening, the patient had no chest pain or dyspnea. I suspect this is demand ischemia concurrent with the dropping of the tourniquet. He is 6 months from a drug eluting stent, but rethrombosis of his stent would likely be much more severe presentation. I spoke with Dr Blue about monitoring the patient on med-telemetry instead of general medical- surgical unit and having his regular dental manager see him while he is inpatient.
[2022-11-02] MEDS ORDERED: NO NSAIDS SCH (18:26)
[2022-11-02] MEDS ORDERED: NITROGLYCERIN SL 0.4 MG/TAB TAB SL SCH (18:26)
[2022-11-02] MEDS ORDERED: ONDANSETRON INJ 2 MG/ML 2 ML VIAL IV PRN (18:26)
[2022-11-02] MEDS ORDERED: bisacodyL 10 MG SUPP PR PRN (18:26)
[2022-11-02] MEDS ORDERED: oxyCODONE HCL IR 5 MG TAB (IMMEDIATE RELEASE) PO PRN (18:26)
[2022-11-02] MEDS ORDERED: MAGNESIUM HYDROXIDE SUSP 30 ML UDC PO PRN (18:26)
[2022-11-02] MEDS ORDERED: ALUMINUM/MAGNESIUM SUSP 30 ML UDC PO PRN (18:26)
[2022-11-02] MEDS ORDERED: NALOXONE HCL 0.4 MG/1 ML VIAL/CARP IV PRN (18:26)
[2022-11-02] MEDS ORDERED: METOCLOPRAMIDE HCL INJ 5 MG/ML 2 ML VIAL IV PRN (18:26)
[2022-11-02] MEDS ORDERED: NON-FORMULARY MEDICATION (Semaglutide 0.25 mg or 0.5 mg (2 mg/3 mL) pen injector) SQ SCH (18:26)
[2022-11-02] MEDS ORDERED: DESOXIMETASONE 0.25% TOP PRN (18:26)
--- NOTE | 2022-11-02 19:19 | Hospitalist Consultation ---
Date of Consultation November 02, 2022 Assessment & Plan (1) CAD, multiple vessel: Mr James was admitted for operative intervention of OA and is s/p left Total Knee Arthroplasty(Left). Intraoperatively patient developed ST depressions and T wave inversions in the lateral leads after tourniquet release while MAP was 6575 which gradually improved. We are consulted for medical management of comorbidities and for cardiac monitoring. EKG changes, history of CAD s/p CABGx2 05/2008 [facility], PCI DEBRA, HTN, HLD, ID-DM, obesity, ROYAL, CKD, OA - Cath 04/2022: 1. Severe multivessel [place] coronary artery disease (98% ostial circumflex, 100% distal circumflex after OM 2. Distal circumflex fills via right to left collaterals. Chronic subtotal ostial LAD occlusion. 95% diffuse distal RCA) 2. Widely patent GLEZ to LAD, SVG to R-PDA. 3. SVG to OM 2 occluded 4. Elevated intracardiac filling pressure (LVEDP 21) 5. Successful PCI of ostial circumflex with single drug-eluting stent (3.0 x 15 mm Andreas postdilated with 4.0 NC) from left main to proximal circumflex. Intraoperative EKG with lateral ST depressions, T wave inversions. ST depressions improved but not resolved by time of arrival to PACU. Repeat EKG pending following arrival to floor Clinically patient without any chest pain, chest pressure, shortness of breath, difficulty breathing. Reports he never had chest pain with his earlier cardiac history, but does not have any tightness or breathing difficulty like he had previously. Suspect demand ischemia in the setting of known residual multivessel disease above. Troponins trended. Clinically inconsistent with stent thrombosis. Discussed with cardiology, agree with troponin trend. Defer echo for now. Continue aspirin/Plavix. -Continue atorvastatin Left knee TKA Neurovascularly intact, adequate pain control Management per primary team CKD Baseline creatinine 22.5 BMP every morning Resume ARB tomorrow if cr at baseline Type II DM Continue basal insulin Patient's home regimen confirmed, NPH/lispro held and SSI aspart ordered instead Pharmacy following Goal BSG [id number] DM, heart healthy diet Semaglutide/empagliflozin held GERD Continue Protonix dailycontinue metoprolol succinate every afternoon 150 mg Hypertension Metoprolol as noted, resume amlodipine, ARB to be resumed tomorrow if renal function normal (2) Chronic kidney disease, stage IV (severe): (3) Hypercholesterolemia: (4) Hypertension: (5) Sleep apnea: (6) Type 2 diabetes mellitus, with long-term current use of insulin: (7) Gastroesophageal reflux disease: History of Present Illness Attending Physician: Chaitanya Blue MD History of Present Illness Mr James was admitted for operative intervention of OA and is s/p left Total Knee Arthroplasty(Left). Intraoperatively patient developed ST depressions and T wave inversions in the lateral leads after tourniquet release while MAP was 6575 which gradually improved. We are consulted for medical management of comorbidities and for cardiac monitoring. Shreyas is seen at the bedside, he reports he feels well although feeling has not come back into his left leg completely and his toes still feel somewhat numb, gradually improving sensation. He denies chest pain and chest pressure. He is having no shortness of breath or difficulty breathing. No chest tightness. He does not have any similar symptoms currently. He is not lightheaded or dizzy. He is eating comfortably, and reports no pain. Hx of PCI w/ DEBRA. Per pt was getting ready for knee surgery several months ago when he got lightheaded and fell down, and then started to have 'wierd feelings' not quite like lack of breath but similar with exertion and was evaluated with a 30 day event monitor which was normal. Had a stress test which was abnormal and then had a cath. PCI x1 to osteal circumflex with DEBRA x1. LADF/R-PDA bipass patent. SVG to OM2 occluded. Completed cardiac rehab and did well with no chest pain since stent placement. Had bipass in 2007, did not have chest pain at that time either. Had some shortness of breath as present sx. Medical History: Reviewed Medications: Reviewed Surgical History: Reviewed Family history: Reviewed Allergies: Reviewed Social History: Reviewed Code Status: Full Allergies Allergy/AdvReac Type Severity Reaction Status Date / Time adhesive Allergy Severe blister, Verified 11/02/22 10:49 rash, irritation nickel Allergy Mild Rash Verified 11/02/22 10:49 Sulfa (Sulfonamide Allergy Unknown SEVERE Verified 11/02/22 10:49 Antibiotics) ALLERGY "COULD " amoxicillin AdvReac Mild VOMITING Verified 11/02/22 10:49 clarithromycin AdvReac Mild GI UPSET Verified 11/02/22 10:49 clavulanic acid AdvReac Mild VOMITING Verified 11/02/22 10:49 Home Medications Medication Instructions Recorded Confirmed Type blood sugar diagnostic (OneTouch #10 ea 02/18/19 10/17/22 History Ultra Blue Test Strip) cholecalciferol (vitamin D3) 25 1,000 units PO QAM 02/18/19 11/02/22 History mcg (1,000 unit) capsule cyanocobalamin (vitamin B-12) 1,000 mcg PO HS #30 tabs 02/18/19 11/02/22 History 1,000 mcg tablet lancets (OneTouch UltraSoft #50 ea 02/18/19 10/17/22 History Lancets) multivitamin (Daily Multi-Vitamin 1 tab PO QAM 02/18/19 11/02/22 History tablet) pen needle, diabetic 31 gauge x #30 ea 02/18/19 10/17/22 History 5/16" (BD Ultra-Fine Short Pen Needle) hydrocortisone 1 % topical ointment 1 applic topical TID PRN Skin 04/23/21 11/02/22 History Irritation fexofenadine 180 mg tablet 180 mg PO QPM 02/17/22 11/02/22 History ketoconazole 2 % topical cream 1 applic topical BID PRN 02/17/22 11/02/22 History allergies, skin irritation and spots nitroglycerin 0.4 mg sublingual 0.4 mg sublingual UD 02/17/22 11/02/22 History tablet insulin glargine 100 unit/mL (3 40 unit (0.4 mL) subcut QPM #45 mL 04/19/22 11/02/22 Rx mL) subcutaneous pen (Lantus Solostar U-100 Insulin) insulin NPH isoph U-100 human 100 30 unit subcut HS 04/21/22 11/02/22 History unit/mL (3 mL) subcutaneous pen (Humulin N NPH U-100 Insulin KwikPen) amlodipine 5 mg tablet 5 mg PO QAM #90 tabs 05/24/22 11/02/22 Rx atorvastatin 80 mg tablet 80 mg PO HS #90 tabs 05/24/22 11/02/22 Rx betamethasone dipropionate 0.05 % 1 applic topical BID PRN skin 05/24/22 11/02/22 Rx topical cream irritation #45 grams desoximetasone 0.25 % topical cream 1 applic topical BID PRN allergies 05/24/22 11/02/22 Rx #100 grams aspirin 81 mg tablet,delayed 81 mg PO QAM #90 tabs 05/28/22 11/02/22 Rx release clopidogrel 75 mg tablet 75 mg PO QAM #90 tabs 06/01/22 11/02/22 Rx ferrous sulfate 325 mg (65 mg 325 mg PO Q OTHER DAY 06/03/22 11/02/22 History iron) tablet irbesartan 300 mg tablet 150 mg PO QAM #45 tabs 07/19/22 11/02/22 Rx famotidine 20 mg tablet 20 mg PO QPM #90 tabs 08/10/22 11/02/22 Rx empagliflozin 25 mg tablet 25 mg PO QAM 09/26/22 11/02/22 History metoprolol succinate 100 mg 150 mg PO QPM 10/04/22 11/02/22 History tablet,extended release 24 hr ketoconazole 2 % shampoo 1 applic topical UD #120 mL 10/20/22 11/02/22 Rx pantoprazole 40 mg tablet,delayed 40 mg PO QAM #90 tabs 10/20/22 11/02/22 Rx release semaglutide 0.25 mg or 0.5 mg (2 0.5 mg (0.8 mL) subcut Q7D #9.6 mL 10/22/22 11/02/22 Rx mg/3 mL) subcutaneous pen injector acetaminophen 500 mg tablet 1,000 mg PO TID pain 30 days #180 10/31/22 11/02/22 Rx (Tylenol Extra Strength) tabs cefadroxil 500 mg capsule 500 mg PO BID 7 days #14 caps 10/31/22 11/02/22 Rx ondansetron 4 mg disintegrating 4 mg PO Q8 PRN nausea #20 tabs 10/31/22 11/02/22 Rx tablet oxycodone 5 mg tablet 5 - 10 mg PO Q6 PRN pain #40 tabs 10/31/22 11/02/22 Rx sennosides 8.6 mg tablet (Senokot) 8.6 mg PO BID prevent constipation 10/31/22 11/02/22 Rx 14 days #28 tabs tamsulosin 0.4 mg capsule (Flomax) 0.4 mg PO DAILY #7 caps 10/31/22 11/02/22 Rx amino acids (Amino Acid capsule) 3 cap PO BID 11/02/22 11/02/22 History insulin lispro 100 unit/mL 30 unit subcut DAILY 11/02/22 11/02/22 History subcutaneous pen (Humalog KwikPen (U-100) Insulin) Patient History Medical History Anemia H&H: 9-11 over the past 2 years Atrial flutter - Post-op CABG, s/p multiple cardioversions and ablation - Per cardio records- had event monitor- no documented recurrent atrial flutter on his current medication regiment BPPV (benign paroxysmal positional vertigo) No issues x 6 months CAD, multiple vessel s/p CABG x 3 in 2007, follows with [facility] S/p DEBRA to Cx on 05/04/22 Chronic kidney disease, stage IV (severe) Follows with [facility] neph[facility] No dialysis at this time Chronic sinusitis Gastroesophageal reflux disease controlled, stable per pt Hx of renal calculi No recent issues Hypercholesterolemia Hypertension controlled, stable per pt Left renal artery stenosis RBBB (right bundle branch block) Seborrheic keratosis, inflamed "occurs from time to time" Sleep apnea Cannot tolerate CPAP Type 2 diabetes mellitus, with long-term current use of insulin Glucose fair control per patient Surgical History History of anesthesia reaction awareness during CABG History of cardiac cath ~, subsequent CABG x 3 History of cardiac catheterization 04/2022 - [facility] - failed stress test - DEBRA x 1. History of cataract surgery bilat. History of colonoscopy History of esophagogastroduodenoscopy (EGD) Hx of arthroscopy of left knee Hx of CABG ~2004, , CABG x 3, follows with [facility] Hx of tonsillectomy Hx of wisdom tooth extraction Family History Father Coronary heart disease Parkinson disease Sinusitis Mother Hypertension Palpitations Son Sinusitis Denies family history of Cancer Stroke Asthma Social History Smoking Status: Never smoker Second Hand Exposure: No; Do You Dip or Chew Tobacco: No; Hx Alcohol Use: No Hx Substance Use: No Preferred Language: Czech Communication Ability: Effective Hearing Ability: Normal Director Non Profit Required: No Beliefs That Will Affect Care: None marital status: Current Living Situation: Spouse current occupational status: retired current occupation: "Organizational Problem Solving" Feels Safe at Home: Yes Safety Concerns: Feels Safe At This Time caffeine: Yes Dental Care, Regularly: Yes Seatbelt Use: always Sunscreen Use: Yes Assistive Devices: Cane and Glasses Review of Systems Review of Systems: All systems reviewed & are unremarkable except as noted in HPI & below Physical Exam Physical Exam: General: A&Ox3. NAD. Cooperative. HEENT: Atraumatic, normocephalic. Vision/hearing intact Pulm: CTAB A&P. -wheezes, -rales, -rhonchi. Symmetrical chest rise. No increased work of breathing. No respiratory distress. Cardiac: RRR, +sm. Radial pulses intact and symmetrical. Abdominal: Nontender, nondistended, soft. BS present. Extremities: Left leg in postop wrap with overlying ice pack. Toes are warm and dry. Wiggles toes bilaterally. Diminished but intact sensation of soft touch in left foot diffusely, gradually improving with time per patient. PT pulse intact bilaterally Results & Data Results & Data Vital Signs (Past 12 Hours) Vital Signs Temp Pulse Pulse Pulse Resp BP Pulse Ox 11/02/22 18:42 76 11/02/22 18:15 36.7 C 75 16 107/63 95 11/02/22 17:45 72 20 118/55 L 95 11/02/22 17:30 75 16 112/51 L 95 11/02/22 17:20 36.4 C L 76 18 114/58 L 98 11/02/22 17:10 77 14 108/52 L 96 11/02/22 17:00 78 12 111/53 L 95 11/02/22 16:50 77 14 117/53 L 95 11/02/22 16:40 78 12 105/54 L 96 11/02/22 16:03 85 11/02/22 16:30 78 16 111/55 L 98 11/02/22 16:20 84 19 109/54 L 98 11/02/22 16:10 87 18 102/54 L 99 11/02/22 16:02 36.0 C L 84 18 108/54 L 94 04/12/23 10:57 36.6 C 80 20 160/75 H 96 O2 Del Method O2 Flow Rate 11/02/22 18:42 11/02/22 18:15 Nasal Cannula 2 11/02/22 17:45 Nasal Cannula 2 11/02/22 17:30 Nasal Cannula 2 11/02/22 17:20 Nasal Cannula 2 11/02/22 17:10 Nasal Cannula 2 11/02/22 17:00 Nasal Cannula 2 11/02/22 16:50 Nasal Cannula 2 11/02/22 16:40 Room Air 11/02/22 16:03 11/02/22 16:30 Oxymask 5 11/02/22 16:20 Oxymask 9 11/02/22 16:10 Oxymask 9 11/02/22 16:02 Oxymask 9 11/02/22 10:57 Room Air PG Care Time/CCT Total # of Minutes Spent Total Time Spent with Patient: Total time spent is greater than 50% in coordination of care (as documented) at patient's floor/unit and/or counseling patient: Coding Level of Care Code 82287 IN/OBS CONSULT LVL 5,80M Diagnoses CAD, multiple vessel I25.10 Chronic kidney disease, stage IV (severe) N18.4 Hypercholesterolemia E78.00 Hypertension I10 Hypertension type: primary hypertension Sleep apnea G47.30 Type 2 diabetes mellitus, with long-term current use of insulin E11.9; Z79.4 Gastroesophageal reflux disease K21.9 (4) Hypertension Hypertension type: primary hypertension Qualified Code(s): I10 - Essential (primary) hypertension
[2022-11-02] MEDS ORDERED: PHARMACY GLYCEMIC MGMT CONSULT PRN (20:02)
[2022-11-02] MEDS: SODIUM CHLORIDE 0.9% 1000ML 1,000 ML IV SCH (20:16)
[2022-11-02] MEDS ORDERED: NON-FORMULARY MEDICATION (Amino Acids [Amino Acid] Capsule) PO SCH (21:00)
[2022-11-02] MEDS ORDERED: SENNA 8.6 MG TAB PO SCH (21:00)
[2022-11-02] MEDS ORDERED: NON-FORMULARY MEDICATION (Insulin Nph Isoph U-100 Human [Humulin N Nph Insulin Kwikpen] 10 SQ SCH (21:00)
[2022-11-02] MEDS ORDERED: LANTUS PER UNIT CHARGE SQ SCH (21:00)
[2022-11-02] MEDS: INSULIN ASPART PER UNIT CHARGE SC SCH (21:24)
[2022-11-02] MEDS: FEXOFENADINE HCL 180 MG TAB PO SCH (21:25)
[2022-11-02] MEDS: FAMOTIDINE 20 MG TAB PO SCH (21:25)
[2022-11-02] MEDS: METOPROLOL SUCC 50MG EXT REL TAB PO SCH (21:25)
[2022-11-02] MEDS: SENNA 8.6 MG TAB PO SCH (21:25)
[2022-11-02] MEDS: ACETAMINOPHEN 500 MG TAB PO SCH (21:26)
[2022-11-02] MEDS: ASPIRIN 81 MG ECTAB PO SCH (21:26)
[2022-11-02] MEDS: DOCUSATE SODIUM 100 MG CAP PO SCH (21:26)
[2022-11-02] MEDS: ASCORBIC ACID 500 MG TAB PO SCH (21:26)
[2022-11-02] MEDS: ATORVASTATIN 40 MG TAB PO SCH (21:27)
[2022-11-02] MEDS: CYANOCOBALAMIN (B-12) 500 MCG TABLET PO SCH (21:27)
[2022-11-02] MEDS ORDERED: TRANEXAMIC ACID / 0.7% NACL 1,000 MG/100 ML BAG IV SCH (22:15)
[2022-11-02] MEDS: ceFAZolin 2000MG 2,000 MG/15 ML SYR IV SCH (22:30)
[2022-11-03] MEDS: HYDROmorphone INJ 0.5 MG/0.5 ML SYR IV PRN ×2 (00:17→15:24)
[2022-11-03] MEDS: INSULIN ASPART PER UNIT CHARGE SC SCH ×6 (00:28→21:38)
[2022-11-03] MEDS: ceFAZolin 2000MG 2,000 MG/15 ML SYR IV SCH (06:05)
[2022-11-03 06:11] LABS: Hematocrit (blood only) 31.5 % (42.0-52.0); Hemoglobin 10.2 g/dl (14.0-18.0); Mean Corpuscular Hemoglobin 31.9 pg (25.0-34.0); Mean Corpuscular Hgb Conc 32.4 g/dL (32.0-36.0); Mean Corpuscular Volume 98.4 fL (80.0-100.0); Mean Platelet Volume 12.8 fL (9.4-12.4); Platelet Count 147 K/uL (130-400); RDW Coefficient of Variation 15.6 % (11.5-14.5); RDW Standard Deviation 55.7 fL (36.4-46.3); White Blood Count 12.52 K/ul (4.8-10.8)
[2022-11-03 06:15] LABS: BUN Creatinine Ratio 15.2 (10-20); Calcium 8.9 mg/dl (8.6-10.3); Est GFR (African American) 38.9 ml/min; Est GFR (Non-African American) 33.5 ml/min; Potassium 4.3 mmol/L (3.5-5.1)
[2022-11-03] MEDS: SODIUM CHLORIDE 0.9% 1000ML 1,000 ML IV SCH (06:24)
[2022-11-03 06:38] LABS: Troponin I High Sensitivity 287.6 pg/ml (0-20)
--- NOTE | 2022-11-03 07:55 | Progress Notes ---
SUBJECTIVE: A 77-year-old gentleman, postoperative day 1 from a left knee replacement. He is doing well. Denies that much pain. No chest pain or shortness of breath. Not feeling dizzy or lightheade d. OBJECTIVE: VITAL SIGNS: Temperature 36.8. Vital signs are stable. GENERAL: Shows a pleasant, elderly male. He is lying in bed, looks pretty comfortable this morning. EXTREMITIES: Examination of the left leg reveals the leg to be well aligned. Dressing is clean, dry and intact. He can dorsiflex and plantarflex his foot appropriately. He is neurologically intact. LABORATORY DATA: Hemoglobin 10.2. Hematocrit 31.5. Electrolytes are stable. Creatinine is chronic ally elevated, but stable. Troponin is elevated. ASSESSMENT: A 77-year-old gentleman, postoperative day 1 from a left knee replacement with some EKG changes intraoperatively. He has had no cardiac symptoms, but his troponin levels are elevated. PLAN: 1. DVT prophylaxis includes thigh-high TEDs, SCDs, and he is back on his Plavix starting today. 2. PT/OT. He can weightbear as tolerated. Left total knee protocol. 3. Pain control, doing okay with current pain regimen. 4. Medical management as per the medicine service. His troponins are elevated and will have them an d cardiology manage his cardiac issues. He is asymptomatic, but concern for cardiac issues. 5. Disposition: He is hoping to be discharged to home with some home health. He is hoping to go ho me today, but we will see what the medicine service says as far as cardiac status. Job ID: [id number]
[2022-11-03] MEDS: ASCORBIC ACID 500 MG TAB PO SCH ×2 (08:32→17:02)
[2022-11-03] MEDS: ACETAMINOPHEN 500 MG TAB PO SCH ×3 (08:33→21:26)
[2022-11-03] MEDS: amLODIPine BESYLATE 5 MG TAB PO SCH (08:34)
[2022-11-03] MEDS: CHOLECALCIFEROL 1,000 UNITS 25 MCG TAB PO SCH (08:34)
[2022-11-03] MEDS: DOCUSATE SODIUM 100 MG CAP PO SCH ×2 (08:35→21:26)
[2022-11-03] MEDS: EMPAGLIFLOZIN 25 MG TAB PO SCH (08:35)
[2022-11-03] MEDS: MULTIVITAMIN TAB PO SCH (08:36)
[2022-11-03] MEDS: PANTOprazole 40 MG TAB PO SCH (08:37)
[2022-11-03] MEDS: TAMSULOSIN HCL 0.4 MG CAP PO SCH (08:37)
[2022-11-03] MEDS ORDERED: ASPIRIN 81 MG ECTAB PO SCH (09:00)
[2022-11-03] MEDS ORDERED: IRBESARTAN 150 MG TAB PO SCH (09:00)
[2022-11-03] MEDS ORDERED: FERROUS SULFATE 325 MG TAB PO SCH (09:00)
[2022-11-03] MEDS ORDERED: NON-FORMULARY MEDICATION (Insulin Lispro [Humalog Kwikpen Insulin] 100 unit/mL insulin pen SQ SCH (09:00)
[2022-11-03] MEDS: LOSARTAN POTASSIUM 50 MG TAB PO SCH (11:07)
[2022-11-03] MEDS ORDERED: traMADol HCL 50 MG TABLET PO PRN (12:57)
[2022-11-03] MEDS ORDERED: traMADol HCL 50 MG TABLET PO STA (12:57)
--- NOTE | 2022-11-03 13:05 | Cardiology Consultation ---
Date of Consultation November 03, 2022 Assessment & Plan (1) CAD, multiple vessel: 2. Perioperative ECG with dynamic ST changes, minimally elevated HS TropI 3. Osteoarthritis post left TKA, POD #1 4. Stage IV CKD 5. Anemia 6. Type II DM Patient with complex chronic CAD post prior CABG and more recent PCI from left main into circumflex. He has known severe residual disease involving diagonal and posterior lateral branch territories. Currently since his surgery yesterday he has remained chest pain-free and electrically stable. Dynamic ST changes in the perioperative setting on ECG have resolved this morning. HS TropI peaking. Overall very low suspicion that recent ECG/HS TropI secondary to ACS or stent thrombosis. Suspect more likely demand ischemia in the setting of his severe residual CAD. Recommend repeating limited echo. If no new resting wall motion abnormalities okay for discharge without additional cardiac testing. Patient completed cardiac rehab where he did well without symptoms. Feel he can participate with physical therapy as needed without additional changes to his c urrent cardiac regimen. Continue DAPT with aspirin, clopidogrel. Follow-up with cardiology on discharge in 2 to 3 weeks. History of Present Illness Attending Physician: Chaitanya Blue MD History of Present Illness Mr. James is a very pleasant 77-year-old man with a history of coronary disease post three-vessel CABG in 2007, type 2 diabetes and stage III-IV CKD seen today due to perioperative ECG changes. As part of preoperative evaluation underwent DSE 03/2022 which was positive with lateral/inferolateral exercise-induced hypokinesis and >[address] depressions inferiorly, V5 V6 with elevation in aVR on ECG. Cardiac cath 04/2022 showed patent GLEZ to LAD, SVG to RPDA. SVG to OM 2 occluded and underwent PCI with single DEBRA from left main into circumflex. Post procedure he has done well. Completed 36 sessions of cardiac rehab without chest pain or unusual MONTALVO. Yesterday underwent left TKA with Dr. Blue with spinal anesthetic and MAC with propofol. Noted during tourniquet released to have [address] depressions on telemetry. ECG postop showed sinus rhythm, ST depression in I, V3 through V6 and borderline elevation in aVR. Patient denies any chest pain postop. Telemetry unremarkable. HS TropI 128 up to 300 this morning. Repeat ECG showed resolution of ST changes this morning. Already working with PT OT this morning. No chest pain but did have 1 brief episode of dizziness with standing. Allergies Allergy/AdvReac Type Severity Reaction Status Date / Time adhesive Allergy Severe blister, Verified 11/02/22 10:49 rash, irritation nickel Allergy Mild Rash Verified 11/02/22 10:49 Sulfa (Sulfonamide Allergy Unknown SEVERE Verified 11/02/22 10:49 Antibiotics) ALLERGY "COULD " amoxicillin AdvReac Mild VOMITING Verified 11/02/22 10:49 clarithromycin AdvReac Mild GI UPSET Verified 11/02/22 10:49 clavulanic acid AdvReac Mild VOMITING Verified 11/02/22 10:49 Home Medications Medication Instructions Recorded Confirmed Type blood sugar diagnostic (OneTouch #10 ea 02/18/19 10/17/22 History Ultra Blue Test Strip) cholecalciferol (vitamin D3) 25 1,000 units PO QAM 02/18/19 11/02/22 History mcg (1,000 unit) capsule cyanocobalamin (vitamin B-12) 1,000 mcg PO HS #30 tabs 02/18/19 11/02/22 History 1,000 mcg tablet lancets (OneTouch UltraSoft #50 ea 02/18/19 10/17/22 History Lancets) multivitamin (Daily Multi-Vitamin 1 tab PO QAM 02/18/19 11/02/22 History tablet) pen needle, diabetic 31 gauge x #30 ea 02/18/19 10/17/22 History 5/16" (BD Ultra-Fine Short Pen Needle) hydrocortisone 1 % topical ointment 1 applic topical TID PRN Skin 04/23/21 11/02/22 History Irritation fexofenadine 180 mg tablet 180 mg PO QPM 02/17/22 11/02/22 History ketoconazole 2 % topical cream 1 applic topical BID PRN 02/17/22 11/02/22 History allergies, skin irritation and spots nitroglycerin 0.4 mg sublingual 0.4 mg sublingual UD 02/17/22 11/02/22 History tablet insulin glargine 100 unit/mL (3 40 unit (0.4 mL) subcut QPM #45 mL 04/19/22 11/02/22 Rx mL) subcutaneous pen (Lantus Solostar U-100 Insulin) insulin NPH isoph U-100 human 100 30 unit subcut HS 04/21/22 11/02/22 History unit/mL (3 mL) subcutaneous pen (Humulin N NPH U-100 Insulin KwikPen) amlodipine 5 mg tablet 5 mg PO QAM #90 tabs 05/24/22 11/02/22 Rx atorvastatin 80 mg tablet 80 mg PO HS #90 tabs 05/24/22 11/02/22 Rx betamethasone dipropionate 0.05 % 1 applic topical BID PRN skin 05/24/22 11/02/22 Rx topical cream irritation #45 grams desoximetasone 0.25 % topical cream 1 applic topical BID PRN allergies 05/24/22 11/02/22 Rx #100 grams aspirin 81 mg tablet,delayed 81 mg PO QAM #90 tabs 05/28/22 11/02/22 Rx release clopidogrel 75 mg tablet 75 mg PO QAM #90 tabs 06/01/22 11/02/22 Rx ferrous sulfate 325 mg (65 mg 325 mg PO Q OTHER DAY 06/03/22 11/02/22 History iron) tablet irbesartan 300 mg tablet 150 mg PO QAM #45 tabs 07/19/22 11/02/22 Rx famotidine 20 mg tablet 20 mg PO QPM #90 tabs 08/10/22 11/02/22 Rx empagliflozin 25 mg tablet 25 mg PO QAM 09/26/22 11/02/22 History metoprolol succinate 100 mg 150 mg PO QPM 10/04/22 11/02/22 History tablet,extended release 24 hr ketoconazole 2 % shampoo 1 applic topical UD #120 mL 10/20/22 11/02/22 Rx pantoprazole 40 mg tablet,delayed 40 mg PO QAM #90 tabs 10/20/22 11/02/22 Rx release semaglutide 0.25 mg or 0.5 mg (2 0.5 mg (0.8 mL) subcut Q7D #9.6 mL 10/22/22 11/02/22 Rx mg/3 mL) subcutaneous pen injector acetaminophen 500 mg tablet 1,000 mg PO TID pain 30 days #180 10/31/22 11/02/22 Rx (Tylenol Extra Strength) tabs cefadroxil 500 mg capsule 500 mg PO BID 7 days #14 caps 10/31/22 11/02/22 Rx ondansetron 4 mg disintegrating 4 mg PO Q8 PRN nausea #20 tabs 10/31/22 11/02/22 Rx tablet oxycodone 5 mg tablet 5 - 10 mg PO Q6 PRN pain #40 tabs 10/31/22 11/02/22 Rx sennosides 8.6 mg tablet (Senokot) 8.6 mg PO BID prevent constipation 10/31/22 11/02/22 Rx 14 days #28 tabs tamsulosin 0.4 mg capsule (Flomax) 0.4 mg PO DAILY #7 caps 10/31/22 11/02/22 Rx amino acids (Amino Acid capsule) 3 cap PO BID 11/02/22 11/02/22 History insulin lispro 100 unit/mL 30 unit subcut DAILY 11/02/22 11/02/22 History subcutaneous pen (Humalog KwikPen (U-100) Insulin) Patient History Medical History Anemia H&H: 9-11 over the past 2 years Atrial flutter - Post-op CABG, s/p multiple cardioversions and ablation - Per cardio records- had event monitor- no documented recurrent atrial flutter on his current medication regiment BPPV (benign paroxysmal positional vertigo) No issues x 6 months CAD, multiple vessel s/p CABG x 3 in 2007, follows with [facility] S/p DEBRA to Cx on 05/04/22 Chronic kidney disease, stage IV (severe) Follows with [facility] nephrology No dialysis at this time Chronic sinusitis Gastroesophageal reflux disease controlled, stable per pt Hx of renal calculi No recent issues Hypercholesterolemia Hypertension controlled, stable per pt Left renal artery stenosis RBBB (right bundle branch block) Seborrheic keratosis, inflamed "occurs from time to time" Sleep apnea Cannot tolerate CPAP Type 2 diabetes mellitus, with long-term current use of insulin Glucose fair control per patient Surgical History History of anesthesia reaction awareness during CABG History of cardiac cath ~, subsequent CABG x 3 History of cardiac catheterization 04/2022 - [facility] - failed stress test - DEBRA x 1. History of cataract surgery bilat. History of colonoscopy History of esophagogastroduodenoscopy (EGD) Hx of arthroscopy of left knee Hx of CABG ~, CABG x 3, follows with [facility] Hx of tonsillectomy Hx of wisdom tooth extraction Family History Father Coronary heart disease Parkinson disease Sinusitis Mother Hypertension Palpitations Son Sinusitis Denies family history of Cancer Stroke Asthma Social History Smoking Status: Never smoker Second Hand Exposure: No; Do You Dip or Chew Tobacco: No; Hx Alcohol Use: No Hx Substance Use: No Preferred Language: Cook Islander Communication Ability: Effective Hearing Ability: Normal Algorithm Design Engineer Required: No Beliefs That Will Affect Care: None marital status: Current Living Situation: Alone current occupational status: retired current occupation: "Organizational Problem Solving" Feels Safe at Home: Yes Safety Concerns: Feels Safe At This Time caffeine: Yes Dental Care, Regularly: Yes Seatbelt Use: always Sunscreen Use: Yes Assistive Devices: None Review of Systems Review of Systems: All systems reviewed & are unremarkable except as noted in HPI & below Physical Exam Physical Exam: General: Comfortable HEENT: Sclerae anicteric Lungs: Clear to auscultation bilaterally Cardiac: Regular rate and rhythm, 2/6 systolic ejection Vascular: 2+ radial Abdomen: Soft, nontender Extremities: Well perfused, no right lower extremity edema. Left lower extremity dressed, wrapped. Neuro: Nonfocal Psych: Alert orient x3, normal affect and mood Results & Data Vital Signs (Past 12 Hours) Vital Signs Temp Pulse Pulse Resp BP Pulse Ox O2 Del Method 11/03/22 11:23 97.9 F 82 20 160/76 H 92 Room Air 11/03/22 11:07 80 126/67 11/03/22 08:16 98.6 F 87 19 138/69 92 Room Air 11/03/22 08:10 Room Air 11/03/22 07:41 69 11/03/22 06:13 98.2 F 80 16 118/62 91 Room Air 11/03/22 03:42 98.2 F 80 20 118/62 91 Room Air PG Care Time/CCT Total # of Minutes Spent Total Time Spent with Patient: Total time spent is greater than 50% in coordination of care (as documented) at patient's floor/unit and/or counseling patient: Coding Level of Care Code 15127 INT INP/OBS CARE 3/75MIN Diagnoses CAD, multiple vessel I25.10
[2022-11-03] MEDS ORDERED: oxyCODONE HCL IR 5 MG TAB (IMMEDIATE RELEASE) PO PRN (13:07)
[2022-11-03] MEDS ORDERED: PERFLUTREN LIPID MICROSPHERE (DEFINITY) IV ONE (14:08)
--- NOTE | 2022-11-03 14:55 | Pharmacy Report ---
Pharmacy Glycemic Short Note 2 - Date of Service November 03, 2022 - Glycemic Short BSG Results (Last 24 hours): 11/02/22 11/02/22 11/02/22 16:13 20:32 20:34 Glucose POC Glucose 129 H 264 H 250 H 11/03/22 11/03/22 11/03/22 00:06 04:55 05:37 Glucose 175 H POC Glucose 212 H 166 H 11/03/22 11/03/22 07:41 11:38 Glucose POC Glucose 159 H 193 H OUTPATIENT ANTIDIABETIC REGIMEN: * semaglutide 0.5mg SC Q7D * Jardiance 25mg PO QD * Lantus 40 units QPM * Humalog 30-42 units daily * NPH 30 units HS * HgbA1c 6.5% 10/03/22 ASSESSMENT: * Shreyas James is a 77 YOM admitted post TKA which was complicated by EKG changes during the procedure. The patient has a history of T2DM and pharmacy was consulted to assist with glycemic management while inpatient. * At home, the patient takes rapid, intermediate, and long-acting insulin * Continued home dose of Lantus 40 units last evening, will increase 10% to 45 units HS due to elevated fasting BSG * Monitor for uptrending BSGs due to held intermediate acting insulin * Shreyas received 8mg of dexamethasone preop x1 as well as Ancef pre-op and post-op x 24 hours, no additional glycemic stressors at this time * No clear indication if current Novolog parameters are sufficient, continue current orders and monitor for trends PLAN FOR INPATIENT GLYCEMIC CONTROL: * Hold outpatient oral diabetes medications * Basal insulin * Lantus 45 units SQ HS * Bolus insulin * NovoLog per scale ACHS or Q6hrs while NPO * Goal Range: Low 110 mg/dL - High 140 mg/dL * Correction Factor: 20 mg/dL/unit * Nutritional / Prandial insulin per carb ratio of 1 unit per 7 grams CHO consumed
--- NOTE | 2022-11-03 17:38 | XCELERA ---
[id number]
--- NOTE | 2022-11-03 17:59 | Hospitalist Progress Note ---
Date of Service November 03, 2022 Assessment & Plan (1) CAD, multiple vessel: Plan: Mr James was admitted for operative intervention of OA and is s/p left Total Knee Arthroplasty(Left). Intraoperatively patient developed ST depressions and T wave inversions in the lateral leads after tourniquet release while MAP was 6575 which gradually improved. We are consulted for medical management of comorbidities and for cardiac monitoring. EKG changes, history of CAD s/p [place] [facility] [place] Cath 04/2022: 1. Severe multivessel [place] coronary artery disease (98% ostial circumflex, 100% distal circumflex after OM 2. Distal circumflex fills via right to left collaterals. Chronic subtotal ostial LAD occlusion. 95% diffuse distal RCA) 2. Widely patent GLEZ to LAD, SVG to R-PDA. 3. SVG to OM 2 occluded 4. Elevated intracardiac filling pressure (LVEDP 21) 5. Successful PCI of ostial circumflex with single drug-eluting stent (3.0 x 15 mm Collins postdilated with 4.0 NC) from left main to proximal circumflex. Intraoperative EKG with lateral ST depressions, T wave inversions. ST depressions improved but not resolved by time of arrival to PACU. Has not had any CP, SOB Troponin trended and has now stabilized out at 300 Limited ECHO 11/03 with similar findings of WMAs to previous from 03/2022 Appreciate Cardiology consult Suspect demand ischemia related to tourniquet release monitor on tele for arrhythmia can discharge to home from cardiac standpoint (2) History of arthroplasty of left knee: Plan: Left knee TKA with pain today better controlled after IV dilaudid added oxycodone continue tylenol (3) Chronic kidney disease, stage IV (severe): Plan: Baseline creatinine 22.5 BMP stable here at 1.9 continue losartan making urine follow BMP in AM (4) Hypertension: Plan: BPs high due to pain continue amlodipine, irbesartan, metoprolol monitor BPs (5) Hypercholesterolemia: Plan: continue statin (6) Sleep apnea: Plan: has CPAP at home but doesn't use it much (7) Type 2 diabetes mellitus, with long-term current use of insulin: Plan: Type II DM Continue basal insulin Patient's home regimen confirmed, NPH/lispro held and SSI aspart ordered instead Pharmacy following Goal BSG [id number] DM, heart healthy diet Semaglutide/empagliflozin held (8) Gastroesophageal reflux disease: Plan: contue PPI Plan DVT proph-TEDs, SCDs, ASA, Plavix Dispo-continued stay overnight, likely home with home health tomorrow if pain controlled. Admission and Anticipated Discharge Date Admission Date: November 02, 2022 Subjective Had a lot of pain in left knee today. No CP or SOB. No BM since admission, is making urine Tele with NSR, rates 70-80s Physical Exam Constitutional: WD/WN, vitals as above Respiratory: normal respiratory effort, lungs clear to auscultation Cardiovascular: RRR, no murmur, no edema Gastrointestinal (Abdomen): normal bowel sounds, soft, nontender, no hepatosplenomegaly Psychiatric: A+Ox3, euthymic affect Results & Data Results & Data Vital Signs (Past 12 Hours) Vital Signs Temp Pulse Pulse Resp BP Pulse Ox O2 Del Method 11/03/22 15:43 37 C 74 19 171/72 H 95 Room Air 11/03/22 14:26 71 11/03/22 11:23 36.6 C 82 20 160/76 H 92 Room Air 11/03/22 11:07 80 126/67 11/03/22 08:16 37 C 87 19 138/69 92 Room Air 11/03/22 08:10 Room Air 11/03/22 07:41 69 11/03/22 06:13 36.8 C 80 16 118/62 91 Room Air Laboratory Results CBC, BMP, troponin reviewed PG Care Time/CCT Total # of Minutes Spent Total Time Spent with Patient: Total time spent is greater than 50% in coordination of care (as documented) at patient's floor/unit and/or counseling patient: Coding Level of Care Code 98779 SUB INP/OBS CARE 3/50MIN Diagnoses CAD, multiple vessel I25.10 History of arthroplasty of left knee Z96.652 Chronic kidney disease, stage IV (severe) N18.4 Hypertension I10 Hypertension type: primary hypertension Hypercholesterolemia E78.00 Sleep apnea G47.30 Type 2 diabetes mellitus, with long-term current use of insulin E11.9; Z79.4 Gastroesophageal reflux disease K21.9 (4) Hypertension Hypertension type: primary hypertension Qualified Code(s): I10 - Essential (primary) hypertension
[2022-11-03] MEDS: POLYETHYLENE (MIRALAX) 17 GM PACK PO SCH (18:38)
[2022-11-03] MEDS ORDERED: LANTUS PER UNIT CHARGE SQ SCH (21:00)
[2022-11-03] MEDS ORDERED: CLOPIDOGREL BISULFATE 75 MG TAB PO SCH (21:00)
[2022-11-03] MEDS: ATORVASTATIN 40 MG TAB PO SCH (21:24)
[2022-11-03] MEDS: SENNA 8.6 MG TAB PO SCH (21:25)
[2022-11-03] MEDS: METOPROLOL SUCC 50MG EXT REL TAB PO SCH (21:25)
[2022-11-03] MEDS: ASPIRIN 81 MG ECTAB PO SCH (21:26)
[2022-11-03] MEDS: FAMOTIDINE 20 MG TAB PO SCH (21:26)
[2022-11-03] MEDS: CYANOCOBALAMIN (B-12) 500 MCG TABLET PO SCH (21:26)
[2022-11-03] MEDS: FEXOFENADINE HCL 180 MG TAB PO SCH (21:27)
[2022-11-04 06:44] LABS: Hematocrit (blood only) 29.6 % (42.0-52.0); Mean Corpuscular Hemoglobin 32.7 pg (25.0-34.0); Mean Corpuscular Hgb Conc 33.8 g/dL (32.0-36.0); Mean Corpuscular Volume 96.7 fL (80.0-100.0); Mean Platelet Volume 13.1 fL (9.4-12.4); Platelet Count 155 K/uL (130-400); RDW Coefficient of Variation 15.9 % (11.5-14.5); Red Blood Count 3.06 M/uL (4.70-6.10); White Blood Count 13.06 K/ul (4.8-10.8)
[2022-11-04 07:09] LABS: BUN Creatinine Ratio 18.2 (10-20); Calcium 9.2 mg/dl (8.6-10.3); Creatinine Clr Calc Pharmacy 49.9 ml/min; Est GFR (African American) 42.9 ml/min; Potassium 3.7 mmol/L (3.5-5.1)
--- NOTE | 2022-11-04 07:36 | Progress Notes ---
SUBJECTIVE: A 77-year-old gentleman, postop day 2 from a left knee replacement. He has been placed on telemetry due to some potential cardiac issues. He has been evaluated and ruled out for any signi ficant cardiac event. His echo yesterday was fairly normal and unchanged. He is asymptomatic. His troponins were little elevated, felt to be related to demand. He reports some moderate knee pain. N o other complaints. No chest pain, no shortness of breath. He is desperately wanting to go home. OBJECTIVE: VITAL SIGNS: Temperature 37.4. Vital signs are stable. PHYSICAL EXAMINATION: GENERAL: Shows a pleasant, elderly male. He is lying in bed. He is awake, alert, and oriented this morning. EXTREMITIES: Examination of the left leg reveals the dressing to be clean, dry and intact. He can d orsiflex and plantar flex his foot appropriate. He is neurologically intact. LABORATORY DATA: Hemoglobin is 10, hematocrit 29.4. Electrolytes are stable. Creatinine is actuall y improved somewhat. ASSESSMENT: A 77-year-old gentleman with multiple medical comorbidities, postoperative day 2 from a left knee replacement. He had some slight EKG changes intraoperatively, felt to be related to demand ischemia. He has been seen by cardiology. Echo done shows no change. PLAN: 1. DVT prophylaxis includes thigh-high TEDs, SCDs. He is on a baby aspirin once a day as well as ba ck on his Plavix. 2. PT, OT. She can fully weightbear as tolerated. 3. Pain control, doing okay with current pain regimen. 4. Disposition: He is hoping to be discharged to home. We will see how therapy goes today. Job ID: [id number]
[2022-11-04] MEDS: EMPAGLIFLOZIN 25 MG TAB PO SCH (08:06)
[2022-11-04] MEDS: CHOLECALCIFEROL 1,000 UNITS 25 MCG TAB PO SCH (08:06)
[2022-11-04] MEDS: LOSARTAN POTASSIUM 50 MG TAB PO SCH (08:06)
[2022-11-04] MEDS: amLODIPine BESYLATE 5 MG TAB PO SCH (08:06)
[2022-11-04] MEDS: POLYETHYLENE (MIRALAX) 17 GM PACK PO SCH (08:06)
[2022-11-04] MEDS: PANTOprazole 40 MG TAB PO SCH (08:06)
[2022-11-04] MEDS: TAMSULOSIN HCL 0.4 MG CAP PO SCH (08:06)
[2022-11-04] MEDS: DOCUSATE SODIUM 100 MG CAP PO SCH (08:07)
[2022-11-04] MEDS: ACETAMINOPHEN 500 MG TAB PO SCH (08:07)
[2022-11-04] MEDS: ASCORBIC ACID 500 MG TAB PO SCH (08:07)
[2022-11-04] MEDS: MULTIVITAMIN TAB PO SCH (08:07)
[2022-11-04] MEDS: INSULIN ASPART PER UNIT CHARGE SC SCH ×2 (08:14→12:39)
--- NOTE | 2022-11-04 19:01 | Electrocardiogram Report ---
Test Reason : Blood Pressure : / mmHG Vent. Rate : 085 BPM Atrial Rate : 085 BPM P-R Int : 220 ms QRS Dur : 110 ms QT Int : 412 ms P-R-T Axes : 059 -55 152 degrees QTc Int : 490 ms Sinus rhythm with 1st degree A-V block with Fusion complexes Left axis deviation Incomplete right bundle branch block Possible Inferior infarct , age undetermined Abnormal ECG When compared with ECG of 03-OCT-2022 11:53, QRS duration has increased T wave inversion now evident in Lateral leads ST now depressed in Lateral leads Confirmed by Garcia Lindsay ([id number]) on 11/04/2022 7:00:50 PM Referred By: hCaitanya Blue Confirmed By:Garcia Lindsay
--- NOTE | 2022-11-04 21:44 | Electrocardiogram Report ---
Test Reason : Blood Pressure : / mmHG Vent. Rate : 072 BPM Atrial Rate : 072 BPM P-R Int : 198 ms QRS Dur : 102 ms QT Int : 424 ms P-R-T Axes : 061 -41 071 degrees QTc Int : 464 ms Normal sinus rhythm Left axis deviation Incomplete right bundle branch block Abnormal ECG When compared with ECG of 02-NOV-2022 16:03, Fusion complexes are no longer Present ST no longer depressed in Anterolateral leads T wave inversion no longer evident in Anterolateral leads Confirmed by Garcia Lindsay ([id number]) on 11/04/2022 9:43:47 PM Referred By: Chaitanya Blue Confirmed By:Garcia Lindsay
== END 2022-11-04 13:32 | disposition home health service (06) ==
LOC: ASU 10:23 → 2W 10:23